=== PATIENT | female | born 1980 | race Caucasian/White ===

== ENCOUNTER 2019-07-26 06:44 | Inpatient (IN) | payer OTHER ==
[2019-07-24 17:57] LABS: Absolute Lymphocytes (CBC) 2.2 K/uL (0.7-4.9); Basophils % 0.7 % (0-1.3); Hematocrit 34.9 % (36.0-45.0); Lymphocytes % 22.5 % (15.3-44.8); MPV 8.5 fL (7.6-11.3); RBC Red Blood Cell Count 4.76 M/uL (3.86-4.86)
[2019-07-24 18:10] LABS: Potassium 3.3 mmol/L (3.5-5.1)
--- OUTSIDE RECORDS SUMMARY | 2019-07-26 06:47 | XMS REPORT ---
:1980 Author Organization [facility] Address [address] [place] [address] Dr. Burr [address] [place] [id number] Care Team Providers Name Role Phone Unavailable Unavailable Unavailable Problems This patient has no known problems. Allergies, Adverse Reactions, Alerts This patient has no known allergies or adverse reactions. Medications This patient has no known medications.
--- OUTSIDE RECORDS SUMMARY | 2019-07-26 06:47 | XMS REPORT | Summary of Care ---
:1980 Author Organization [facility] Address [address] [place] [id number] Care Team Providers Name Role Phone Allan Cuello MD Primary Care Provider Reason for Visit Reason Comments Results Encounter Details Date Type Department Care Team Description 07/25/2019 Telephone [facility] Family Medicine Allan Cuello MD Results - [address] [id number] [place] [address] Allergies Active Allergy Reactions Severity Noted Date Comments Codeine Shortness of Breath High 01/22/2015 "slows breathing" documented as of this encounter (statuses as of 07/25/2019) Medications No known medicationsdocumented as of this encounter (statuses as of 07/25/2019) Active Problems Problem Noted Date Transient amnesia 07/22/2018 Iron deficiency anemia 10/02/2016 Vitamin D deficiency 10/02/2016 Dyslipidemia 10/02/2016 Situational depression 08/13/2016 Obesity 03/07/2016 documented as of this encounter (statuses as of 07/25/2019) Resolved Problems Problem Noted Date Resolved Date History of hypothyroidism 08/13/2016 08/13/2016 History of ileostomy 07/22/2016 08/13/2016 Pain 07/21/2016 08/10/2016 Abdominal wall cellulitis 03/07/2016 08/10/2016 documented as of this encounter (statuses as of 07/25/2019) Immunizations Name Administration Dates Next Due Influenza Virus Vaccine Quad IM 3+ YRS 07/22/2016 TDAP (ADACEL) VACCINE 09/24/2016 documented as of this encounter Social History Tobacco Use Types Packs/Day Years Used Date Never Smoker Smokeless Tobacco: Never Used Alcohol Use Drinks/Week oz/Week Comments Yes socially Sex Assigned at Date Recorded Not on file Job Start Date Occupation Industry Not on file Not on file Not on file Travel History Travel Start Travel End No recent travel history available. documented as of this encounter Last Filed Vital Signs Not on filedocumented in this encounter Plan of Treatment Health Maintenance Due Date Last Done Comments VARICELLA VACCINES (1 of 2 - 1982 2-dose childhood series) PAP SMEAR 02/17/2008 02/16/2005, 01/18/2004 INFLUENZA VACCINE (#1) 2019 07/22/2016 DTaP,Tdap,and Td Vaccines (2 09/24/2026 09/24/2016 - Td) PNEUMOCOCCAL 0-64 YEARS Aged Out No longer eligible based COMBINED SERIES on patient's age to complete this topic documented as of this encounter Results Not on filedocumented in this encounter
[2019-07-26] MEDS ORDERED: Ringers Lactate 1,000 ML IV ONE ×2 (07:05→10:20)
[2019-07-26] MEDS ORDERED: MIDAZOLAM HCL 2 MG/2 ML INJ ONE (07:16)
[2019-07-26] MEDS ORDERED: propofoL 200 MG/20 ML VIAL IV ONE (07:16)
[2019-07-26] MEDS ORDERED: FENTANYL CITR 100 MCG/2 ML ONE (07:16)
[2019-07-26] MEDS ORDERED: LIDOCAINE 2% MPF 5 ML VIAL ONE (07:17)
[2019-07-26] MEDS ORDERED: ROCURONIUM 50 MG/5 ML VIAL IV ONE (07:20)
[2019-07-26] MEDS ORDERED: dexAMETHasone 10 MG/ML VIAL ONE (07:38)
[2019-07-26] MEDS ORDERED: ROPLVACAINE HCL ONE (07:38)
[2019-07-26] MEDS ORDERED: CEFAZOLIN/SWI 1gm 1 GM/10 ML SYR ONE (07:48)
[2019-07-26] MEDS ORDERED: HYDROMORPHONE HCL 1 MG/ML INJ ONE (08:43)
[2019-07-26] MEDS ORDERED: NS 0.9% VIAL 10 ML ONE (08:53)
[2019-07-26] MEDS ORDERED: ONDANSETRON 4 MG/2 ML VIAL ONE (08:58)
[2019-07-26] MEDS ORDERED: dexAMETHasone 4 MG/ML VIAL ONE (08:58)
[2019-07-26] MEDS ORDERED: NEOSTIGMINE 1 MG/ML -5 ML ONE (09:32)
[2019-07-26] MEDS ORDERED: GLYCOPYRROLATE 0.2 MG/ML SYR ONE (09:32)
[2019-07-26] MEDS ORDERED: SODIUM CHLORIDE 0.9% 10ML INJ IV PRN (09:33)
[2019-07-26] MEDS ORDERED: ONDANSETRON 4 MG/2 ML VIAL IV PRN (09:33)
--- NOTE | 2019-07-26 09:33 | P.BOP ---
Preoperative diagnosis: tender incisional ventral hernia, hx of emergent total colectomy with ileos Postoperative diagnosis: same , intrabdominal adhesions Primary procedure: 1. Open repair of incisional ventral hernia with mesh laparoscopic assisted Secondary procedure: 2. Lysis of adhesions Department Mgr: Neda Lynn ([place]) Estimated blood loss: <20c Specimen: henia sac Findings: as above Anesthesia: General Complications: None Transferred to: Recovery Room Condition: Good
[2019-07-26] MEDS: HYDROMORPHONE HCL 2 MG/ML inj ONE ×4 (09:48→10:05)
[2019-07-26] MEDS ORDERED: MEPERIDINE HCL 25 MG/0.5 ML ONE (09:59)
[2019-07-26] MEDS: FENTANYL CITR 100 MCG/2 ML ONE ×4 (10:09→10:25)
[2019-07-26] MEDS: HYDROMORPHONE HCL 1 MG/ML INJ ONE ×2 (10:30→10:40)
[2019-07-26 10:40] VITALS: O2SAT 96
[2019-07-26] MEDS ORDERED: KETOROLAC 30 MG/ML INJ ONE (10:41)
[2019-07-26] MEDS: NA CHLORIDE 0.9% 1,000 ML IV SCH ×2 (11:07→20:00)
[2019-07-26 11:37] VITALS: BMI 33.0
[2019-07-26] MEDS ORDERED: INFLUENZA VACCINE (for 3y+) 0.5 ML DOSE IMVAC ONE (12:00)
[2019-07-26] MEDS: CEFOXITIN/SWI 1gm 1 GM/10 ML SYR IV SCH ×2 (12:04→17:31)
[2019-07-26] MEDS: MEPERIDINE HCL 25 MG/0.5 ML IV PRN (14:40)
--- NOTE | 2019-07-26 21:04 | OP ---
Date of Procedure: 07/26/2019 Surgeon: Hai Richmond MD Bottom Bleacher: BRIELLE Long. Preoperative Diagnoses: Tender incisional ventral hernia, history of emergent total colectomy with i leostomy, and reversal of ileostomy. Postoperative Diagnoses: Tender incisional ventral hernia, history of emergent total colectomy with ileostomy and reversal of ileostomy, and intraabdominal adhesions. Procedures: 1.Open repair of incisional ventral hernia with mesh, laparoscopic access. 2.Laparoscopic lysis of adhesions. Specimen: Hernia sac. Findings: Patient has a ventral incisional hernia where the previous ileostomy was. Patient has ext ensive intraabdominal adhesions. Drains: None. Implant: Ventralex mesh of medium size. Indications: This is the case of a 38-year-old patient, who comes to us with a ventral hernia. She has an emergent total colectomy in the past with exploratory laparotomy and she required ileostomy th en eventually reversal of ileostomy, but she developed a ventral hernia tender on the left lower quad rant where the previous ileostomy was. The benefits, alternatives, and risks of above procedure were fully explained to the patient, which include but are not limited to infection, bleeding, damage to adjacent structures, anesthesia complication, recurrence, FL, even . She also understands this may not relieve her symptoms. She might need more than one surgical intervention. She was explained the possible use of mesh in that area. Pros and cons of mesh placed in were discussed with the ghulam ent, and after answering all her questions, she did agree and consent me for the use of mesh. She un derstands the importance also of no heavy lifting and losing weight. Patient brought to the operatin g room, placed in supine position. Anesthesia was given without complication. Abdomen was prepped a nd draped in a sterile fashion. Since we have previous incisions on her laparotomies, we found a spo t in the epigastric area, where she does not have any incision. We are hoping that the scar tissue t here is less than usual. So we made an incision on that area. Incision was carried down to fascia, which was opened under direct vision. Peritoneum was encountered, opened under direct vision. Vicry l #1 placed inside the fascia. Gypsy trocar was carefully introduced and no bleeding was obtained. With that, we were able to visualize the area of her hernia, clearly visualize. Adhesions are on th e abdomen and lower abdomen, obviously from previous laparotomies and total colectomy, and so we proc eeded to do evaluation of the area. We selected the size of the mesh to cover at least 3-5 cm over t he area of the defects. At that moment, it looked like the fascia edges were apart. It will be bett er just to have a combination and do this open and then laparoscopic assist. So we opened the incisi on in the left lower quadrant. Incision was carried down to fascia, which was opened under direct vi gabe. The hernia sac was encountered and removed. We found the fascial edges, cleaned them. There were some adhesions present in that area that have to be removed, carefully removed with scissors and checking for hemostasis. After that, we proceeded to measure the area, select the mesh placement. We placed a Ventralex medium size mesh inside the abdomen. Pulled it through the hernia sac in order to secure that. We are going to go laparoscopic and secure that in place, which give her better fix ation of the mesh into the underlying tissue and fascia. At that moment, we secured the straps with #1 Prolene, then the [id number] fashion #[address] over the incision. We held incis ion all together while we just put the camera once again, and in order for us to be nice and flat, we have to do some adhesions, so put a 5 mm trocar, do laparoscopic lysis of adhesions to the lower abd omen. This allowed the mesh to be nice and flat against the abdominal wall. Adhesions were checked once again. Hemostasis obtained. No bleeding. At that moment, I proceeded then to tie the stitches on top to secure the defects. We noticed an airproof and waterproof closure. When we did that and we went underneath and proceeded to use a capture to secure the mesh and all the edges to avoid any t issue in between to be trapped in the future to secure a complete fixation. After that, we closed th e subcutaneous tissue with 0 chromic and 3-0 chromic. I removed the trocars under direct visualizati on, and no bleeding. Checked the lysis of adhesion before, no bleeding. Closed the subcutaneous tis laurel with 3-0 chromic and the skin with erika. Sponge count and instrument counts were correct. Al so the epigastric area was closed also with #1 Vicryl. Patient was sent to Recovery in stable condit ion. Sponge count and instrument counts were correct. Since the patient had extensive adhesion yisel john and incisional ventral hernia, we expect this patient to have a pain, probably ileus. We are hardik ng to keep the patient overnight for pain control, diet control. REMIGIO/AMANDA Voice ID: [id number] Report ID: [id number]
[2019-07-27] MEDS: CEFOXITIN/SWI 1gm 1 GM/10 ML SYR IV SCH (00:06)
[2019-07-27] MEDS: MEPERIDINE HCL 25 MG/0.5 ML IV PRN ×3 (00:25→12:36)
[2019-07-27 04:13] LABS: Absolute Lymphocytes (CBC) 1.1 K/uL (0.7-4.9); Basophils % 0.1 % (0-1.3); Hematocrit 32.8 % (36.0-45.0); Lymphocytes % 8.2 % (15.3-44.8); MPV 8.8 fL (7.6-11.3)
[2019-07-27 04:33] LABS: BUN Blood Urea Nitrogen 13 mg/dL (7-18); Bicarbonate 27 mmol/L (21-32); Glucose Level 133 mg/dL (74-106); Potassium 3.9 mmol/L (3.5-5.1); Sodium Level 141 mmol/L (136-145)
[2019-07-27] MEDS: NA CHLORIDE 0.9% 1,000 ML IV SCH (04:36)
[2019-07-27 07:42] LABS: Blood Morphology Comment NOT SEEN (NOT SEEN); Platelet Estimate ADEQ
[2019-07-27] MEDS ORDERED: PANTOPRAZOLE 40 MG INJ IVP SCH (09:00)
[2019-07-27 11:45] VITALS: BP 149/66; TEMP 97.6
--- NOTE | 2019-07-27 13:52 | P.DS ---
Admission Date: 07/26/19 Discharge Date: 07/27/19 Disposition: ROUTINE DISCHARGE Discharge Condition: GOOD Vital Signs/Physical Exam: Temp Pulse Resp BP Pulse Ox 97.6 F 77 18 149/66 H 99 07/27/19 11:44 07/27/19 11:44 07/27/19 12:36 07/27/19 11:44 07/27/19 12:36 General: Alert, Oriented x3 HEENT: PERRLA Neck: Supple Respiratory: Normal air movement Cardiovascular: No edema, Normal pulses Gastrointestinal: Soft and benign Musculoskeletal: No erythema, No tenderness, No warmth Integumentary: No rashes, No breakdown, No erythema, No warmth, No cyanosis Neurological: Normal speech Laboratory Data at Discharge: WBC 13.2 K/uL (4.3-10.9) H D 07/27/19 03:30 Hgb 10.3 g/dL (12.0-15.0) L 07/27/19 03:30 Hct 32.8 % (36.0-45.0) L 07/27/19 03:30 Plt Count 321 K/uL (152-406) 07/27/19 03:30 Sodium 141 mmol/L (136-145) 07/27/19 03:30 Potassium 3.9 mmol/L (3.5-5.1) 07/27/19 03:30 BUN 13 mg/dL (7-18) 07/27/19 03:30 Creatinine 0.72 mg/dL (0.55-1.3) 07/27/19 03:30 Glucose 133 mg/dL (74-106) H 07/27/19 03:30 Home Medications: Multivit,Calc,Mins/Iron/Folic [One Daily Women's Health Tab] 1 each PO DAILY Ondansetron [Zofran*] 4 mg IV Q6HP PRN #10 vial 07/27/19 Sulfamethoxazole/Trimethoprim [Bactrim Ds Tablet] 1 each PO BID #12 tablet 07/27 Tramadol HCl/Acetaminophen [Ultracet Tablet] 1 each PO Q4H PRN #30 tablet New Medications: Ondansetron [Zofran*] 4 mg IV Q6HP PRN #10 vial PRN Reason: Nausea / Vomiting Sulfamethoxazole/Trimethoprim [Bactrim Ds Tablet] 1 each PO BID #12 tablet Tramadol HCl/Acetaminophen [Ultracet Tablet] 1 each PO Q4H PRN #30 tablet PRN Reason: Pain Scale 5-7 (Moderate) Patient Discharge Instructions: Keep surgical area dry for 24 hours then remove outer dressings and shower. Abdominal binder while out of bed. Diet: AHA Activity: No lifting more than 10 lbs Followup: Hai Richmond MD [ACTIVE - CAN ADMIT] - 1 Week
== END 2019-07-27 15:20 | disposition home or self-care (01) | DRG 337 ==
LOC: OR 06:44 → 4TH 09:40
PROVIDERS: ADMIT Surgery; ATTEND Surgery
PROC: 0DNW0ZZ Release Peritoneum, Open Approach (ICD-10-PCS; 2019-07-26)
PROC: 0WUF0JZ Supplement Abdominal Wall with Synthetic Substitute, Open Approach (ICD-10-PCS; principal; 2019-07-26 08:00)
DX: K43.2 Incisional hernia without obstruction or gangrene (principal); Z90.49 Acquired absence of other specified parts of digestive tract; K66.0 Peritoneal adhesions (postprocedural) (postinfection)
CPT/HCPCS: 36415; 80048; 81025; 85025; 88302; C9113; J0690; J1100; J1170; J2175; J2250; J2405; J2704; J2710; J2795; J3010; J7030; J7120

== ENCOUNTER 2022-08-22 15:32 | Emergency (ER) | payer BC, OTHER ==
--- OUTSIDE RECORDS SUMMARY | 2022-08-22 15:38 | XMS REPORT | Continuity of Care Document ---
:1980 Author Organization [facility] t Address [address] [place] [address] [place] [id number] Care Team Providers Name Role Phone Sarahy HESS, Sammie Ndiaye Primary Care Physician [phone] Sarahy HESS, Sammie Ndiaye Attending Clinician + [phone] Eros HESS, Allan Perea Attending Clinician Unique Santillan DO Attending Clinician Neo Faith MD Attending Clinician ALLAN COONEY Attending Clinician Unavailable Doctor Unassigned, [place] Attending Clinician Unavailable Irma Elizabeth Attending Clinician Bella Perez Attending Clinician Payers Payer Name Policy Type Policy Number Effective Date Expiration Date S ource Problems Condition Condition Condition Status Onset Resolution Last Treating Co mments Source Name Details Category Date Date Treatment Clinician Date Alcohol Alcohol Disease Active Methodi abuse abuse 08-19 00:00: Hospita 00 l H/O total H/O total Disease Active Met hodi colectomy colectomy 08-19 00:00: Hospita 00 l Primary Primary Disease Active [facility]i hypertensi hypertensi [address] on on 00:00: Hospita 00 l DAXA DAXA Disease Active Methodi (generaliz (generaliz 3-15 st ed anxiety ed anxiety 00:00: Ho spita disorder) disorder) 00 l Major Major Disease Active Methodi depressive depressive [address] disorder, disorder, 00:00: Hosp susy single single 00 l episode, episode, moderate moderate Acquired Acquired Disease Active Metho di hypothyroi hypothyroi 3-15 st dism dism 00:00: Hospita 00 l Family Family Disease Active Methodi history of history of 3-15 st breast breast 00:00: Hospita cancer cancer 00 l Chronic Chronic Disease Active Univers insomnia insomnia 4-16 ity of 00:00: [place] 00 [facility] Transient Transient Disease Active Uni vers amnesia amnesia 2-15 ity of 00:00: [place] 00 [facility] Vitamin D Vitamin D Disease Active Uni vers deficiency deficiency 4-28 it y of 00:00: [place] [facility] Dyslipidem Dyslipidem Disease Active U nivers ia ia 4-28 ity of 00:00: [place] [facility] Iron Iron Disease Active Univers deficiency deficiency 4-28 it y of anemia anemia 00:00: [place] 00 [facility] Situationa Situationa Disease Active U nivers l l 3-09 ity of depression [place] [facility] Obesity Obesity Disease Active 2015-06 Univers 0- ity of 00:00: [place] [address] Medical Branch OTHER OTHER Diagnosis Active 2015-12-08 Mem oria Active 12-07 22:01:00 l 12/08/2015 00:00: David tracy [address] LWBS LWBS Diagnosis Active 2014-11-01 Mem oria Active 10-31 03:19:00 l 10/31/2014 00:00: David tracy [address] Ileostomy Ileostomy Problem Resolve 2015-12-12 [place] operation operation d 00:20:35 l (procedure (procedure He jayann ) ) Resolved Problem 12/12/2015 [facility] History of Past Illness Condition Condition Condition Status Onset Resolution Last Treating Co mments Source Name Details Category Date Date Treatment Clinician Date Discharge Discharge Problem 2015-12-12 2015-12-12 Yolanda Diagnosis: Diagnosis: 12-08 00:20:35 00:20:35 l Ileostomy Ileostomy 05:00: Herm greg prolapse prolapse 00 12/09/2015 12/12/2015 [facility] Discharge Discharge Problem 2015-12-12 2015-12-12 Yolanda Diagnosis: Diagnosis: 12-08 00:20:35 00:20:35 l Encounter Encounter 05:00: Sharif preston for 00 attention attention to to ileostomy ileostomy 12/09/2015 12/12/2015 [facility] Allergies, Adverse Reactions, Alerts Allergy Allergy Status Severity Reaction(s) Onset Inactive Treating Comm ents Source Name Type Date Date Clinician Codeine Propensi Active Shortness of "slows U nivers ty to Breath 8-18 breathing ity of adverse 00:00: " [place] reaction 00 Medical s Branch CODEINE DRUG Active High SOB Univers INGREDI 8-18 ity of 00:00: [place] 00 Medical Branch Codeine Propensi Active Shortness Of "slows M ethodi ty to Breath 8-[address] adverse 00:00: ""slows Hospita reaction 00 breathing l s to ""slows drug breathing " codeine codeine Active Yolanda Jeter Family History Family Member Diagnosis Comments Start Date Stop Date Source Natural mother Hypertension [facility] Social History Social Habit Start Date Stop Date Quantity Comments Source Exposure to Not sure University of SARS-CoV-2 [place] [facility] (event) Branch History of Cigarette Smoker [facility] tobacco use Tobacco use and 2022-08-19 2022-08-19 Smokeless tobacco [facility] exposure 00:00:00 00:00:00 non-user Alcohol intake 2022-08-19 2022-08-19 Current drinker [facility] [place] 00:00:00 00:00:00 of alcohol (finding) Alcohol Comment 2022-08-19 2022-08-19 heavy for the [facility] 00:00:00 00:00:00 last 2 months, liquor all day and heavier on the weekend Sex Ass[birth year] [facility] 00:00:00 00:00:00 Smoking Status Start Date Stop Date Source Ex-smoker 2022-08-19 00:00:00 2022-08-19 00:00:00 [facility] Social [facility] Medications Ordered Filled Start Stop Current Ordering Indication Dosage Frequency Signature Comments Components Source Medication Medication Date Date Medication? Clinician (SIG) Name Name sertraline 2023- Yes 25mg QD Take 1 Meth nick (Zoloft) 25 3-15 -15 tablet (25 s t MG tablet 00:00: 04:59 mg total) Ho spita 00 :00 by mouth l daily. busPIRone 3-0 4- Yes 5mg [id number] Take 1 Methodi (BUSPAR) 5 3-15 03-15 [id number] tablet (5 st MG tablet 00:00: 04:59 3D mg total) Ho spita 00 :00 by mouth 3 l (three) times a day. iohexol 2020-0 2020- No 100mL 100 mL, Unive rs (OMNIPAQUE 01-17 Intravenou it y of 350 00:15: 00:15 s, ONCE, 1 [place] BULK-100 00 :00 dose, Wed Medica l mL) 01/17/20 at Branch injection 1915, 100 mL Routine NaCl 0.9% 2020-0 2020- No 1000mL at 999 Uni vers (NS) bolus 01-16 mL/hr, ity of infusion 21:45: 03:23 1,000 mL, Seven as 1,000 mL 00 :00 IV Medical Infusion, Branch ONCE, 1 dose, 01/17/20 at 1645, [facility] iohexol 2019-0 2020- No 100mL 100 mL, Unive rs (OMNIPAQUE 01-04 Intravenou it y of 350 22:45: 22:45 s, ONCE, 1 [place] BULK-100 00 :00 dose, Fri Medica l mL) 01/05/20 at Branch injection 1745, 100 mL Routine ondansetron 2019-0 2020- No 4mg 4 mg, Slow Univers (ZOFRAN 01-04 IV Push, ity of (PF)) 21:30: 21:41 Administer [place] injection 4 00 :00 over 15 Medic al mg Minutes, Branch ONCE, 1 dose, 01/05/20 at 1630, STAT morpHINE 2019-0 2020- No 4mg 4 mg, Slow Un john injection 4 01-04 IV Push, ity of mg 21:30: 21:26 ONCE, 1 [place] 00 :00 dose, Fri Medical 01/05/20 at Branch 1630, STAT NaCl 0.9% 2020-0 2020- No 1000mL at 999 Uni vers (NS) bolus 01-04 mL/hr, ity of infusion 21:30: 23:20 1,000 mL, Seven as 1,000 mL 00 :00 IV Medical Infusion, Branch ONCE, 1 dose, Wed01/05/20 at 1630, [facility] ciprofloxac 2020-0 Yes [id number] 500mg Take 1 Univers in HCl 500 7-31 tablet by ity of mg tablet 00:00: mouth 2 [place] 00 (two) Medical times Branch daily. metroNIDAZO 2020-0 Yes [id number] 500mg Take 1 Univers LE 500 mg 7-31 tablet by ity o f tablet 00:00: mouth [place] 00 every 8 Medical (eight) Branch hours. proMETHazin 2020-0 Yes [id number] 25mg Take 1 Univers e 25 mg 7-31 tablet by ity of tablet 00:00: mouth [place] 00 every 4 Medical (four) Branch hours as needed for Nausea and Vomiting (N/V). traMADol 2020-0 Yes [id number] 50mg Take 1 Univers (ULTRAM) 50 7-31 tablet by ity of mg tablet 00:00: mouth [place] 00 every 6 Medical (six) Branch hours as needed for Pain (scale 7-10). Indication s: acute pain ciprofloxac 2020-0 Yes [id number] 500mg Take 1 Univers in HCl 500 7-31 tablet by ity of mg tablet 00:00: mouth 2 [place] 00 (two) Medical times Branch daily. metroNIDAZO 2020-0 Yes [id number] 500mg Take 1 Univers LE 500 mg 7-31 tablet by ity o f tablet 00:00: mouth [place] 00 every 8 Medical (eight) Branch hours. proMETHazin 2020-0 Yes [id number] 25mg Take 1 Univers e 25 mg 7-31 tablet by ity of tablet 00:00: mouth [place] 00 every 4 Medical (four) Branch hours as needed for Nausea and Vomiting (N/V). traMADol 2020-0 Yes [id number] 50mg Take 1 Univers (ULTRAM) 50 7-31 tablet by ity of mg tablet 00:00: mouth [place] 00 every 6 Medical (six) Branch hours as needed for Pain (scale 7-10). Indication s: acute pain ciprofloxac 2020-0 Yes [id number] 500mg Take 1 Univers in HCl 500 7-31 tablet by ity of mg tablet 00:00: mouth 2 [place] 00 (two) Medical times Branch daily. metroNIDAZO 2020-0 Yes [id number] 500mg Take 1 Univers LE 500 mg 7-31 tablet by ity o f tablet 00:00: mouth [place] 00 every 8 Medical (eight) Branch hours. proMETHazin 2020-0 Yes [id number] 25mg Take 1 Univers e 25 mg 7-31 tablet by ity of tablet 00:00: mouth [place] 00 every 4 Medical (four) Branch hours as needed for Nausea and Vomiting (N/V). traMADol 2020-0 Yes [id number] 50mg Take 1 Univers (ULTRAM) 50 7-31 tablet by ity of mg tablet 00:00: mouth [place] 00 every 6 Medical (six) Branch hours as needed for Pain (scale 7-10). Indication s: acute pain ciprofloxac 2020-0 Yes [id number] 500mg Take 1 Univers in HCl 500 7-31 tablet by ity of mg tablet 00:00: mouth 2 [place] 00 (two) Medical times Branch daily. metroNIDAZO 2020-0 Yes [id number] 500mg Take 1 Univers LE 500 mg 7-31 tablet by ity o f tablet 00:00: mouth [place] 00 every 8 Medical (eight) Branch hours. proMETHazin 2020-0 Yes [id number] 25mg Take 1 Univers e 25 mg 7-31 tablet by ity of tablet 00:00: mouth [place] 00 every 4 Medical (four) Branch hours as needed for Nausea and Vomiting (N/V). traMADol 2020-0 Yes [id number] 50mg Take 1 Univers (ULTRAM) 50 7-31 tablet by ity of mg tablet 00:00: mouth [place] 00 every 6 Medical (six) Branch hours as needed for Pain (scale 7-10). Indication s: acute pain ciprofloxac 2020-0 Yes [id number] 500mg Take 1 Univers in HCl 500 7-31 tablet by ity of mg tablet 00:00: mouth 2 [place] 00 (two) Medical times Branch daily. metroNIDAZO 2020-0 Yes [id number] 500mg Take 1 Univers LE 500 mg 7-31 tablet by ity o f tablet 00:00: mouth [place] 00 every 8 Medical (eight) Branch hours. proMETHazin 2020-0 Yes [id number] 25mg Take 1 Univers e 25 mg 7-31 tablet by ity of tablet 00:00: mouth [place] 00 every 4 Medical (four) Branch hours as needed for Nausea and Vomiting (N/V). traMADol 2020-0 Yes [id number] 50mg Take 1 Univers (ULTRAM) 50 7-31 tablet by ity of mg tablet 00:00: mouth [place] 00 every 6 Medical (six) Branch hours as needed for Pain (scale 7-10). Indication s: acute pain ciprofloxac 2020-0 Yes [id number] 500mg Take 1 Univers in HCl 500 7-31 tablet by ity of mg tablet 00:00: mouth 2 (two) Medical times Branch daily. metroNIDAZO 2020-0 Yes [id number] 500mg Take 1 Univers LE 500 mg 7-31 tablet by ity o f tablet 00:00: mouth [place] 00 every 8 Medical (eight) Branch hours. proMETHazin 2020-0 Yes [id number] 25mg Take 1 Univers e 25 mg 7-31 tablet by ity of tablet 00:00: mouth [place] 00 every 4 Medical (four) Branch hours as needed for Nausea and Vomiting (N/V). traMADol 2020-0 Yes [id number] 50mg Take 1 Univers (ULTRAM) 50 7-31 tablet by ity of mg tablet 00:00: mouth [place] 00 every 6 Medical (six) Branch hours as needed for Pain (scale 7-10). Indication s: acute pain ciprofloxac 2020-0 Yes [id number] 500mg Take 1 Univers in HCl 500 7-31 tablet by ity of mg tablet 00:00: mouth (two) Medical times Branch daily. metroNIDAZO 2020-0 Yes [id number] 500mg Take 1 Univers LE 500 mg 7-31 tablet by ity o f tablet 00:00: mouth [place] 00 every 8 Medical (eight) Branch hours. proMETHazin 2020-0 Yes [id number] 25mg Take 1 Univers e 25 mg 7-31 tablet by ity of tablet 00:00: mouth [place] 00 every 4 Medical (four) Branch hours as needed for Nausea and Vomiting (N/V). traMADol 2020-0 Yes [id number] 50mg Take 1 Univers (ULTRAM) 50 7-31 tablet by ity of mg tablet 00:00: mouth [place] 00 every 6 Medical (six) Branch hours as needed for Pain (scale 7-10). Indication s: acute pain traZODone 2020-0 Yes [id number] 25mg Take 0.5-1 Univers 50 mg 4-16 tablets by ity of tablet 00:00: mouth at [place] 00 bedtime. Medical Branch traZODone 2020-0 Yes [id number] 25mg Take 0.5-1 Univers 50 mg 4-16 tablets by ity of tablet 00:00: mouth at [place] bedtime. Medical Branch traZODone 2020-0 Yes [id number] 25mg Take 0.5-1 Univers 50 mg 4-16 tablets by ity of tablet 00:00: mouth at [place] [address] bedtime. Medical Branch traZODone 2020-0 Yes [id number] 25mg Take 0.5-1 Univers 50 mg 4-16 tablets by ity of tablet 00:00: mouth at [place] bedtime. Medical Branch traZODone 2020-0 Yes [id number] 25mg Take 0.5-1 Univers 50 mg 4-16 tablets by ity of tablet 00:00: mouth at [place] [address] bedtime. [facility] Branch traZODone 2020-0 Yes [id number] 25mg Take 0.5-1 Univers 50 mg 4-16 tablets by ity of tablet 00:00: mouth at [place] [address] bedtime. Medical Branch traZODone 2020-0 Yes [id number] 25mg Take 0.5-1 Univers 50 mg 4-16 tablets by ity of tablet 00:00: mouth at [place] [address] bedtime. Medical Branch traZODone 2020-0 Yes [id number] 25mg Take 0.5-1 Univers 50 mg 4-16 tablets by ity of tablet 00:00: mouth at [place] [address] bedtime. [facility] Branch traZODone 2020-0 Yes [id number] 25mg Take 0.5-1 Univers 50 mg 4-16 tablets by ity of tablet 00:00: mouth at [place] [address] bedtime. Medical Branch traZODone 2020-0 Yes [id number] 25mg Take 0.5-1 Univers 50 mg 4-16 tablets by ity of tablet 00:00: mouth at [place] [address] bedtime. Medical Branch traZODone 2020-0 Yes [id number] 25mg Take 0.5-1 Univers 50 mg 4-16 tablets by ity of tablet 00:00: mouth at [place] [address] bedtime. [facility] Branch traZODone 2020-0 Yes [id number] 25mg Take 0.5-1 Univers 50 mg 4-16 tablets by ity of tablet 00:00: mouth at [place] [address] bedtime. Medical Branch traZODone 2020-0 Yes [id number] 25mg Take 0.5-1 Univers 50 mg 4-16 tablets by ity of tablet 00:00: mouth at [place] 00 bedtime. [facility] Iohexol 2015- No 96 mL, Memoria 12-08 Route: l 07:39: IVP, Drug [place] Form: SOLN, Dosing Weight 84.545, kg, ONCALL, STAT, Start date: 12/09/15 2:39:00 CDT, Duration: 1 doses or times, Dose = 2.2ml/kg, Max dose = 100ml -- "To be infused by Radiology Staff ONLY" Iohexol No 96 mL, Memoria 12-08 Route: l 07:39: IVP, Drug [place] 00 Form: SOLN, Dosing Weight 84.545, kg, ONCALL, STAT, Start date: 12/09/15 2:39:00 CDT, Duration: 1 doses or times, Dose = 2.2ml/kg, Max dose = 100ml -- "To be infused by Radiology Staff ONLY" Iohexol No 96 mL, Memoria 12-08 Route: l 07:39: IVP, Drug [place] 00 Form: SOLN, Dosing Weight 84.545, kg, ONCALL, STAT, Start date: 12/09/15 2:39:00 CDT, Duration: 1 doses or times, Dose = 2.2ml/kg, Max dose = 100ml -- "To be infused by Radiology Staff ONLY" Zofran No Notes: [place] 12-08 (Same as: l 03:36: Zofran) [place] 00 MEDICATION WASTE Product Size: 4 mg Product Wasted: 0 mg Zofran No Notes: Memoria 12-08 (Same as: l 03:36: Zofran) [place] 00 MEDICATION WASTE Product Size: 4 mg Product Wasted: 0 mg Zofran No Notes: Memoria 12-08 (Same as: l 03:36: Zofran) [place] 00 MEDICATION WASTE Product Size: 4 mg Product Wasted: 0 mg Isolyte S No 1,000 mL, Mem oria PH-7.4 12-08 Route: IV, l (Bolus) IV 02:54: Dosing Lucy nn 00 Weight 84.545, kg, ONCE, Start date: 12/08/15 21:54:00 CDT, Stop date: 12/08/15 21:54:00 CDT Isolyte S 2016-0 No 1,000 mL, Mem oria PH-7.4 12-08 Route: IV, l (Bolus) IV 02:54: Dosing Lucy nn Weight 84.545, kg, ONCE, Start date: 12/08/15 21:54:00 CDT, Stop date: 12/08/15 21:54:00 CDT Isolyte S 2016-0 No 1,000 mL, Mem oria PH-7.4 12-08 Route: IV, l (Bolus) IV 02:54: Dosing Lucy nn Weight 84.545, kg, ONCE, Start date: 12/08/15 21:54:00 CDT, Stop date: 12/08/15 21:54:00 CDT No known No Univers medications ity [facility] No known No Univers medications ity [facility] No known No Univers medications ity [facility] No known No Univers medications ity of [facility] No known No [facility] Ordered Filled Immunization Date Status Comments [facility] e Immunization Name Name TDAP (ADACEL) 2016-09-24 Completed University of VACCINE 00:00:00 [facility] TDAP (ADACEL) 2016-09-24 Completed University of VACCINE 00:00:00 [place] [facility] TDAP (ADACEL) 2016-09-24 Completed University of VACCINE 00:00:00 [place] [facility] TDAP (ADACEL) 2016-09-24 Completed University of VACCINE 00:00:00 [place] [facility] TDAP (ADACEL) 2016-09-24 Completed University of VACCINE 00:00:00 [place] [facility] TDAP (ADACEL) 2016-09-24 Completed University of VACCINE 00:00:00 [place] [facility] TDAP (ADACEL) 2016-09-24 Completed University of VACCINE 00:00:00 [place] [facility] TDAP (ADACEL) 2016-09-24 Completed University of VACCINE 00:00:00 [place] [facility] TDAP (ADACEL) 2016-09-24 Completed University of VACCINE 00:00:00 [place] [facility] TDAP (ADACEL) 2016-09-24 Completed University of VACCINE 00:00:00 [facility] TDAP (ADACEL) 2016-09-24 Completed University of VACCINE 00:00:00 [facility] TDAP (ADACEL) 2016-09-24 Completed University of VACCINE 00:00:00 [facility] TDAP (ADACEL) 2016-09-24 Completed University of VACCINE 00:00:00 [facility] TDAP (ADACEL) 2016-09-24 Completed University of VACCINE 00:00:00 [facility] TDAP (ADACEL) 2016-09-24 Completed University of VACCINE 00:00:00 [facility] TDAP (ADACEL) 2016-09-24 Completed University of VACCINE 00:00:00 [facility] TDAP (ADACEL) 2016-09-24 Completed University of VACCINE 00:00:00 [facility] TDAP (ADACEL) 2016-09-24 Completed University of VACCINE 00:00:00 [facility] Influenza Virus 2016-07-22 Completed Universit y of Vaccine Quad IM 3+ 00:00:00 [facility] Influenza Virus 2016-07-22 Completed Universit y of Vaccine Quad IM 3+ 00:00:00 [facility] Influenza Virus 2016-07-22 Completed Universit y of Vaccine Quad IM 3+ 00:00:00 [facility] Influenza Virus 2016-07-22 Completed Universit y of Vaccine Quad IM 3+ 00:00:00 [facility] Influenza Virus 2016-07-22 Completed Universit y of Vaccine Quad IM 3+ 00:00:00 [facility] Influenza Virus 2016-07-22 Completed Universit y of Vaccine Quad IM 3+ 00:00:00 [facility] Influenza Virus 2016-07-22 Completed Universit y of Vaccine Quad IM 3+ 00:00:00 [facility] Influenza Virus 2016-07-22 Completed Universit y of Vaccine Quad IM 3+ 00:00:00 [facility] Influenza Virus 2016-07-22 Completed Universit y of Vaccine Quad IM 3+ 00:00:00 [facility] Influenza Virus 2016-07-22 Completed Universit y of Vaccine Quad IM 3+ 00:00:00 [facility] Influenza Virus 2016-07-22 Completed Universit y of Vaccine Quad IM 3+ 00:00:00 [facility] Influenza Virus 2016-07-22 Completed Universit y of Vaccine Quad IM 3+ 00:00:00 [facility] Influenza Virus 2016-07-22 Completed Universit y of Vaccine Quad IM 3+ 00:00:00 [facility] Influenza Virus 2016-07-22 Completed Universit y of Vaccine Quad IM 3+ 00:00:00 [facility] Influenza Virus 2016-07-22 Completed Universit y of Vaccine Quad IM 3+ 00:00:00 [facility] Influenza Virus 2016-07-22 Completed Universit y of Vaccine Quad IM 3+ 00:00:00 [facility] Influenza Virus 2016-07-22 Completed Universit y of Vaccine Quad IM 3+ 00:00:00 [facility] Influenza Virus 2016-07-22 Completed Universit y of Vaccine Quad IM 3+ 00:00:00 [facility] Vital Signs Vital Name Observation Time Observation Value Comments Source Systolic blood 2020-01-18 02:30:00 153 mm[Hg] Univer sity of pressure [facility] Diastolic blood 2020-01-18 02:30:00 79 mm[Hg] Unive rsity of pressure [facility] Heart rate 2020-01-18 02:30:00 73 /min Universi ty of [facility] Body temperature 2020-01-18 02:30:00 37.17 [place] Univ ersity of [facility] Respiratory rate 2020-01-18 02:30:00 16 /min Univ ersity of [facility] Oxygen saturation in 2020-01-18 02:30:00 100 /min University of Arterial blood by [facility] Pulse oximetry Branch Body height 2020-01-17 21:23:00 170.2 cm Universi ty of [facility] Body weight 2020-01-17 21:23:00 90.719 kg Universi ty of [facility] BMI 2020-01-17 21:23:00 31.32 kg/m2 Universi ty of [facility] Diastolic blood 2020-01-05 23:33:52 81 mm[Hg] Unive rsity of pressure [facility] Heart rate 2020-01-05 23:33:52 62 /min Universi ty of [facility] Respiratory rate 2020-01-05 23:33:52 15 /min Univ ersity of [facility] Oxygen saturation in 2020-01-05 23:33:52 100 /min University of Arterial blood by [facility] Pulse oximetry Branch Systolic blood 2020-01-05 23:33:52 156 mm[Hg] Univer sity of pressure [facility] Body temperature 2020-01-05 20:21:00 36.72 [place] [facility] Body height 2020-01-05 20:21:00 170.2 cm Universi ty [facility] Body weight 2020-01-05 20:21:[address] [facility] BMI 2020-01-05 20:21:00 31.95 kg/m2 [facility] Systolic blood 2022-08-19 12:05:00 159 mm[Hg] [facility] pressure Diastolic blood 2022-08-19 12:05:00 86 mm[Hg] [facility] [place] pressure Heart rate 2022-08-19 12:05:00 89 /min [facility] Body height 2022-08-19 12:05:[address] [facility] Body weight 2022-08-19 12:05:[address] [facility] BMI 2022-08-19 12:05:00 32.11 kg/m2 [facility] Oxygen saturation in 2022-08-19 12:05:00 98 /min [facility] Arterial blood by Pulse oximetry Systolic (mm Hg) 2015-12-09 11:15:00 Larry rial [place] Diastolic (mm Hg) 2015-12-09 11:15:00 Mem orial [place] Heart Rate 2015-12-09 11:15:00 [facility] Respitory Rate 2015-12-09 11:15:00 Memori al [place] Heart Rate 2015-12-09 08:00:00 [facility] [place] Respitory Rate 2015-12-09 08:00:00 Memori al [place] Systolic (mm Hg) 2015-12-09 08:00:00 Larry rial [place] Diastolic (mm Hg) 2015-12-09 08:00:00 Mem orial [place] Systolic (mm Hg) 2015-12-09 05:54:00 Larry rial [place] Diastolic (mm Hg) 2015-12-09 05:54:00 Mem orial [place] Respitory Rate 2015-12-09 05:54:00 Memori al [place] Heart Rate 2015-12-09 05:54:00 [facility] [place] Temperature Oral (F) 2015-12-09 02:42:00 98 F Koffi Olguinann Weight 2015-12-09 01:00:00 [facility] [place] Temperature Oral (F) 2015-12-09 01:00:00 98 F Koffi Jeter Height 2015-12-09 01:00:00 170.18 cm Koffi Jeter BMI Calculated 2015-12-09 01:00:00 Shar berrios [place] Respitory Rate 2014-10-31 23:29:00 Shar al [place] Heart Rate 2014-10-31 23:29:00 [facility] [place] Systolic (mm Hg) 2014-10-31 23:29:00 Larry oro [place] Diastolic (mm Hg) 2014-10-31 23:29:00 Mem susannahal [place] Temperature Oral (F) 2014-10-31 23:29:00 99.6 F Koffi Olguinann Procedures Procedure Date / Time Performing Clinician Source Performed MAMMO BREAST SCREEN 2022-08-21 20:12:00 [facility] TOMOS[facility] BILATERAL [place] CBC WITH PLATELET AND 2022-08-20 13:26:00 [facility] DIFFERENTIAL [place] COMPREHENSIVE METABOLIC 2022-08-20 13:26:00 [facility] PANEL [place] LIPID PANEL 2022-08-20 13:26:00 [facility] TSH WITH REFLEX TO FREE 2022-08-20 13:26:00 [facility] T4 [place] VITAMIN D 25 HYDROXY 2022-08-20 13:26:00 [facility] LEVEL [place] GGT 2022-08-20 13:26:00 [facility] HEMOGLOBIN A1C 2022-08-20 13:26:00 [facility] URINALYSIS 2020-01-18 01:43:00 [facility] Sant[facility]an [facility] Medical [address] CT ABDOMEN PELVIS W 2020-01-18 00:06:37 Unique Santillan [facility] Branch XR CHEST 1 VW 2020-01-17 21:58:01 Unique Santillan [facility] HB ABO GROUPING 2020-01-17 21:50:00 Tyrell [facility] LIPASE 2020-01-17 21:46:00 Tyrell [facility] HEPATIC FUNCTION PANEL 2020-01-17 21:46:00 Tyrell Iak[facility] ([id number]) (ALB,T.PRO,BILI Medical Branch T,BU/BC,ALT,AST,ALK PHOS) BASIC METABOLIC PANEL 2020-01-17 21:46:00 Tyrell [facility] (NA, K, CL, CO2, Medical Branch GLUCOSE, BUN, CREATININE, CA) CBC WITH DIFF 2020-01-17 21:46:00 [facility] / INR 2020-01-17 21:46:00 Tyrell [facility] ACTIVATED PARTIAL 2020-01-17 21:46:00 Tyrell [facility] THRMPLAS ELLIOTT [facility] COVID-19 (ID NOW RAPID 2020-01-17 21:46:00 Tyrell [facility] TESTING) Medical Branch EKG-12 LEAD 2020-01-17 21:31:33 Tyrell [facility] CT ABDOMEN PELVIS W 2020-01-05 22:40:04 Marcell [facility] CONTRAST [facility] Branch URINALYSIS 2020-01-05 21:28:00 Marcell [facility] LIPASE 2020-01-05 21:23:00 Marcell [facility] TEST, SERUM 2020-01-05 21:23:00 Marcell [facility] HEPATIC FUNCTION PANEL 2020-01-05 21:23:00 Marcell [facility] ([id number]) (ALB,T.PRO,BILI Medical Branch T,BU/BC,ALT,AST,ALK PHOS) BASIC METABOLIC PANEL 2020-01-05 21:23:00 Marcell [facility] (NA, K, CL, CO2, Medical Branch GLUCOSE, BUN, CREATININE, CA) CBC WITH DIFF 2020-01-05 21:23:00 Marcell [facility] PROTHROMBIN TIME / INR 2020-01-05 21:23:00 Neo Faith Redd [facility] EXTERNAL PROVIDER 2019-08-07 06:01:00 Doctor Unassigned, No [facility] [place] RECORDS Name Medical [facility] EXTERNAL PROVIDER 2019-07-28 06:01:00 [facility], [facility] Plan of Care Planned Activity Planned Date Details Comments Source Future Scheduled 2022-08-22 COVID-19 VACCINE [facility] Test 02:16:38 (#1) [code = COVID-19 VACCINE (#1)] Future Scheduled 2022-08-22 Hepatitis C [facility] Test 02:16:38 screening (procedure) [code = 454191369] Future Scheduled 2022-08-22 [facility] for [facility] Test 02:16:38 malignant neoplasm of cervix (procedure) [code = 867039052] Future Scheduled 2022-08-22 INFLUENZA VACCINE [facility] Test 02:16:38 [code = INFLUENZA VACCINE] Future Scheduled 2022-08-22 [facility] Test 02:16:38 SCREENING [code = BREAST CANCER SCREENING] Encounters Start End Encounter Admission Attending Care Care Encounter Source Date/Time Date/Time Type Type Clinicians Facility Department ID 2021-04-04 Emergency [facility] [id number] Univers 12:10:45 ity of [facility] 2021-04-04 Emergency [facility] [id number] Univers 10:07:54 ity of [facility] 2022-08-21 2022-08-21 [facility] Sarahy, 1.2.840.1 [id number] Methodi 14:55:35 23:59:00 Encounter Sammie 87027.1.1 [address] [facility] 3.430.2.7 Hosp susy .3.084888 l .8 2022-08-21 2022-08-21 Outpatient SARAHY [facility] [id number] [address] [place] 00:00:00 00:00:00 SAM[address] 2022-08-21 2022-08-21 Travel 1.2.840.1 1.2.801.929 [id number] Methodi 00:00:00 00:00:[address] 3.430.2.7 0.2.7.3.698 Ho spita .3.614190 084.8 l .8 2022-08-19 2022-08-19 Office Sarahy, 1.2.840.1 [id number] Methodi 07:00:00 07:48:34 Visit Sammie 04854.1.[address] [place] 3.430.2.7 Hosp susy .3.634499 l .8 2022-08-19 2022-08-19 Outpatient WEATHERS, [facility] [id number] [address] [place] 00:00:00 00:00:[address] 2022-08-19 2022-08-19 Travel 1.2.840.1 1.2.985.470 [id number] Methodi 00:00:00 00:00:[address] 3.430.2.7 0.2.7.3.698 Ho spita .3.380063 084.8 l .8 2020-12-25 2020-12-25 Commerce [place], [place]AC 1.2.840.114 [id number] Univers 00:00:00 00:00:00 Wondiful A Health 350.1.13.10 ity of [place] 4.2.7.2.686 Seven as Professio [phone] [address] Office Building One 2020-03-23 2020-03-23 [facility] Eros WIAC 1.2.840.114 [id number] Univers 00:00:00 00:00:00 Wondiful A [place] 350.1.13.10 ity [place] [phone] [place] dicdc nal 044 Branch [facility] 2020-02-18 2020-02-18 Refstevie Cooney [facility] 1.2.840.114 [id number] Univers 00:00:00 00:00:00 Wondiful A [place] 350.1.13.10 ity [place] [phone] [place] [address] Branch [facility] 2020-01-18 2020-01-18 [facility]ill [facility] 1.2.840.114 [id number] Univers 00:00:00 00:00:00 Wondiful A [place] 350.1.13.10 ity [place] [phone] [address] 2020-01-17 2020-01-17 Emergency Unique Santillan [facility] 1.2.840.1 [id number] Univers 16:24:00 22:23:00 Faith, [facility] 350.1.13.10 [place] [phone] [address] ([facility]) 2020-01-17 2020-01-17 Telephone [facility] 1.2.840.114 [id number] Univers 00:00:00 00:00:00 Wondiful A Health 350.1.13.10 ity of [place] 4.2.7.2.686 [place] as Professio [phone] [address] Office Building One 2020-01-05 2020-01-05 [facility] 1.2.511.800 [id number] Univers 15:29:03 19:44:00 [facility] 350.1.13.10 [place] [phone] [address] ([facility]) 2020-01-05 2020-01-05 Telephone [facility] 1.2.840.114 [id number] Univers 00:00:00 00:00:00 Wondiful A Health 350.1.13.10 ity of [place] 4.2.7.2.686 [place] Professio [phone] [address] Office Building [facility] 2019-12-18 2019-12-18 [facility] 1.2.840.114 [id number] Univers 00:00:00 00:00:00 Wondiful A [place] 350.1.13.10 it[place] [phone] [address] 2019-11-16 2019-11-16 [facility] 1.2.840.114 [id number] Univers 00:00:00 00:00:00 Wondiful A [place] 350.1.13.10 ity [place] [phone] [address] 2019-10-13 2019-10-13 Refill [facility] 1.2.840.114 [id number] Univers 00:00:00 00:00:00 Wondiful A [place] 350.1.13.10 it[place] [phone] [address] 2019-09-21 2019-09-21 Telemedici [facility] 1.2.840.114 [id number] Univers 07:23:58 14:15:57 ne Visit Wondiful A [place] 350.1.13.10 ity [place] [phone] [address] 2019-09-21 2019-09-21 Outpatient R EROS [facility] [id number] Univers 11:00:00 11:00:00 WONDIFUL ity o f [facility] 2019-08-07 2019-08-07 Orders Doctor QUICK 1.2.840.114 [id number] Univers 00:00:00 00:00:00 Only Unassigned, KAUSHIK 350.1.13.10 ity of [place] [facility] 4.2.7.2.686 Seven as [phone] [address] 2019-07-28 2019-07-28 Telephone [facility] 1.2.840.114 [id number] Univers 00:00:00 00:00:00 Wondiful A Health 350.1.13.10 ity of [place] 4.2.7.2.686 [place] Professio [phone] [address] Building One 2019-07-28 2019-07-28 Orders Doctor ABDELRAHMAN 1.2.840.114 [id number] Univers 00:00:00 00:00:00 Only Unassigned, KAUSHIK 350.1.13.10 [facility] 4.2.7.2.686 Seven as [phone] [address] 2019-07-26 2019-07-26 Telephone Eros [facility] 1.2.840.114 [id number] Univers 00:00:00 00:00:00 Wondiful A Health 350.1.13.10 ity of [place] 4.2.7.2.686 [place] as Professio [phone] [facility] 044 [facility] 2019-07-25 2019-07-25 Telephone [facility] 1.2.840.114 [id number] Univers 00:00:00 00:00:00 Wondiful A Health 350.1.13.10 ity of [place] 4.2.7.2.686 [place] as Professio [phone] [address] 2016-08-03 2016-08-03 Outpatient MHIE MHIE [id number] [place] 11:15:00 11:15:00 03 [place] 2016-08-03 2016-08-03 Outpatient MHIE MHIE [id number] Memoria 11:15:00 11:15:00 03 [facility] 2016-07-02 2016-07-02 Outpatient MHIE MHIE [id number] Memoria 14:30:00 14:30:00 02 [place] 2016-07-02 2016-07-02 Outpatient MHIE MHIE [id number] Memoria 14:30:00 14:30:00 02 [facility] 2016-06-09 2016-06-09 Outpatient MHIE MHIE [id number] Memoria 09:15:00 09:15:00 01 [place] 2016-06-09 2016-06-09 Outpatient MHIE MHIE [id number] Memoria 09:15:00 09:15:00 01 [facility] 2015-12-09 2015-12-09 [facility] [id number] Memoria 00:53:00 11:43:00 Emergency r [place] 01 [facility] 2015-12-09 2015-12-09 [facility] [id number] Memoria 00:53:00 11:43:00 Emergency r [place] 01 [facility] 2015-12-08 2015-12-09 Outpatient Glenn [facility] [id number] 19:53:00 06:43:00 Irma Gillespie 2014-10-31 2014-11-01 [facility] [id number] Memoria 23:14:00 03:11:00 Emergency r [place] 00 [facility] 2014-10-31 2014-11-01 [facility] [id number] Memoria 23:14:00 03:11:00 Emergency r [place] 00 [facility] 2014-10-31 2014-10-31 Outpatient Chris 2.16.840. 2.16.840.1. 3 [id number] 18:14:00 22:11:00 Bella Vazquez [id number]. 800803.3.61 00 3.615.0.1 5.0.101 01 Results Test Description Test Time Test Comments Results Result Comments Source Comprehensive metabolic panel 2022-08-21 05:40:00 Test Item Value Reference Range Interpretation Comme nts Glucose (test code = 94 mg/dL 65-99 Fastin g reference 2345-7) interval BUN (test code = 3094-0) 13 mg/dL 7-25 Creatinine (test code = 0.76 mg/dL 0.50-0.99 2160-0) eGFR (test code = 102 See_Comment [place] [address]-7) the CKD-EPI 202 1 equation. To ca lculate the new eGFR fr om a previous Creati nine or Cystatin Cresul t, go to https://www.kid raymond.org/ professionals/k doqi/gfr %5Fcalculator [Automated mess age] The system which ge nerated this result tra nsmitted reference range : > OR = 60 mL/min/1.73m 2. The reference range was not used to interpr et this result as normal/abnormal . BUN/creatinine ratio NOT APPLICABLE See_Comment [Aut omated message] (test code = 3097-3) The sys tem which generated this result transmitted ref erence range: 6 - 22 ( calc). The reference r shahana was not used to int erpret this result as normal/abnormal . Sodium (test code = 140 mmol/L 052-276 2686-2) Potassium (test code = 4.1 mmol/L 3.5-5.3 2823-3) Chloride (test code = 103 mmol/L 98-110 2075-0) CO2 (test code = 2027-9) 28 mmol/L 20-32 Calcium (test code = 9.2 mg/dL 8.6-10.2 10790-9) Protein (test code = 6.9 g/dL 6.1-8.1 2885-2) Albumin, S (test code = 4.0 g/dL 3.6-5.1 1751-7) Globulin, total (test 2.9 See_Comment [Auto mated message] code = 33798-9) The system w hich generated this result transmitted ref erence range: 1.9 - 3. 7 g/dL (calc). The ref erence range was not u sed to interpret this result as normal/abnor mal. Albumin/globulin ratio 1.4 See_Comment [Aut omated message] (test code = 1759-0) The sys tem which generated this result transmitted ref erence range: 1.0 - 2. 5 (calc). The ref erence range was not u sed to interpret this result as normal/abnor mal. Total bilirubin (test 0.5 mg/dL 0.2-1.2 code = 1974-2) Alkaline phosphatase 50 U/L 31-125 (test code = 6768-6) AST (test code = 1920-8) 16 U/L 10-30 ALT (test code = 1742-6) 13 U/L 6-29 ROBSON (test code = ROBSON) FASTING:YES FASTING: YES RAC (test code = RAC) Performing Organization Information: Site ID: RGA Name: [facility] Address: [address] [place] [id number] Director: Emeka Kay [facility] [id number] 05:40:00 Test Item Value Reference Range Interpretation Comments Cholesterol, total 205 mg/dL <=200 H (test code = 2092-3) HDL cholesterol 54 mg/dL See_Comment [Automated (test code = 2084-) message ] The system which generated this result transmitted reference range : > OR = 50. The reference range was not used to interpret this result as normal/abnormal . Triglycerides (test 136 mg/dL <=150 code = 2571-8) LDL cholesterol 126 mg/dL (calc) H Reference ra nge: calculated (test <100 Desira ble code = 55449-4) range <100 m g/dL for primary prevention; <70 mg/dL for patients with C HD or diabetic patients with > or = 2 CHD risk factors. LDL-C is now calculated using the Anthony calculation, which is a validated novel method providin g better accuracy than the Friedewald equation in the estimation of LDL-C. Akbar S S et al. YOHANA. 2013;310(19): 2789-1718 (http://educati on .Revision3 .com/faq/BVK590 ) Cholesterol/HDL 3.8 See_Comment [Automated ratio (test code = message] The 9830-1) system which generated this result transmitted reference range : <5.0 (calc). Th e reference range was not used to interpret this result as normal/abnormal . Non-HDL cholesterol 151 See_Comment H For ghulam ents with (test code = diabetes plus 1 11822-3) major ASCVD ris k factor, treatin g to a non-HDL-C goal of <100 mg/dL (LDL-C of <70 mg/dL) is considered a therapeutic option. [Automated message] The system which generated this result transmitted reference range : <130 mg/dL (calc). The reference range was not used to interpret this result as normal/abnormal . ROBSON (test code = FASTING:YES ROBSON) FASTING: YES RAC (test code = Performing RAC) Organization Information: Site ID: RGA Name: [facility] Address: [address] [place] [phone] Director: Emeka Kay Lab Interpretation Abnormal (test code = 64925-7) [id number] 05:40:00 Test Item Value Reference Range Interpretation Comments GGT (test code = 10 U/L 3-55 2324-2) ROBSON (test code = FASTING:YES FASTING: YES ROBSON) RAC (test code = Performing Organization RAC) Information: Site ID: JOSEA Name: [facility] Address: [address] [place] [phone] Director: Emeka Kay [facility] [id number] 05:40:00 Test Item Value Reference Interpretation Comments Range Hemoglobin A1C 5.7 See_Comment H For someone w roz (test code = known diabetes, a 4548-4) hemoglobin A1c value between 5.7% an d 6.4% is consist ent withprediabetes and should be confi rmed with a follow-u p test. For someo ne with known diab etes, a value <7%indicates that their diabetes is well controlled . Z5ecgxgrbg shou ld be individualized based on duration ofdiabetes, age , comorbid condit ions, and otherconsiderat ions. This assay resu lt is consistent with an increased risko f diabetes. Curre ntly, no consensus ex ists regarding use ofhemoglobin A1 c for diagnosis of diabetes for children. [Auto mated message] The sy stem which generated this result transmit octavio reference range : <5.7 % of total Hgb. The reference r shahana was not used to interpret this result as normal/abnormal . ROBSON (test code = FASTING:YES ROBSON) FASTING: YES RAC (test code = Performing RAC) Organization Information: Site ID: JOSEA Name: [facility] Lab Address: [address] [place] [phone] Director: Emeka Kay Lab Interpretation Abnormal (test code = 74108-1) [facility] with platelet and [id number] 05:40:00 Test Item Value Reference Range Interpretation Comments WBC (test code = 7.9 See_Comment [Automated 4647-2) message] The system which generated this result transmitted reference range : 3.8 - 10.8 Thousand/uL. Th e reference range was not used to interpret this result as normal/abnormal . RBC (test code = 4.69 See_Comment [Automated 167-8) message] The system which generated this result transmitted reference range : 3.80 - 5.10 Million/uL. The reference range was not used to interpret this result as normal/abnormal . HGB (test code = 10.1 g/dL 11.7-15.5 L 718-7) HCT (test code = 33.2 % 35.0-45.0 L 4544-3) MCV (test code = 70.8 fL 80.0-100.0 L 787-2) MCH (test code = 21.5 pg 27.0-33.0 L 785-6) MCHC (test code = 30.4 g/dL 32.0-36.0 L 786-4) RDW (test code = 15.9 % 11.0-15.0 H 788-0) Platelet count (test 421 See_Comment H [Autom ated code = 777-3) message] The system which generated this result transmitted reference range : 140 - 400 Thousand/uL. Th e reference range was not used to interpret this result as normal/abnormal . MPV (test code = 10.7 fL 7.5-12.5 776-5) Neutrophils, 5530 See_Comment [Automated absolute (test code message] The = 751-8) system which generated this result transmitted reference range : 1,500 - 7,800 cells/uL. The reference range was not used to interpret this result as normal/abnormal . Lymphocytes, 1635 See_Comment [Automated absolute (test code message] The = 731-0) system which generated this result transmitted reference range : 850 - 3,900 cells/uL. The reference range was not used to interpret this result as normal/abnormal . Monocytes, absolute 521 See_Comment [Automa octavio (test code = 742-7) message] The system which generated this result transmitted reference range : 200 - 950 cells/uL. The reference range was not used to interpret this result as normal/abnormal . Eosinophils, 174 See_Comment [Automated absolute (test code message] The = 711-2) system which generated this result transmitted reference range : 15 - 500 cells/uL. The reference range was not used to interpret this result as normal/abnormal . Basophils, absolute 40 See_Comment [Automa octavio (test code = 704-7) message] The system which generated this result transmitted reference range : 0 - 200 cells/u L. The reference range was not used to interpr et this result as normal/abnormal . Neutrophils (test 70 % code = 770-8) Lymphocytes (test 20.7 % code = 736-9) Monocytes (test code 6.6 % = 5905-5) Eosinophils (test 2.2 % code = 713-8) Basophils + RC (test 0.5 % code = 706-2) ROBSON (test code = FASTING:YES ROBSON) FASTING: YES RAC (test code = Performing RAC) Organization Information: Site ID: JOSEA Name: [facility] Address: [address] [place] [phone] Director: Emeka Kay Lab Interpretation Abnormal (test code = 39093-2) [facility]vine[facility]it[facility] D 25 hydroxy [id number] 05:40:00 Test Item Value Reference Range Interpretation Comments Vitamin D, 25-hydroxy 19 ng/mL 30-100 L Vitami n D Status (test code = 1988-08) 25-OH V itamin D: Deficiency: <20 ng/mLInsufficie n cy: 20 - 29 ng/mLOptimal: > or = 30 ng/mL For 25-OH Vitamin D testing on patients on D2-supplementat i on and patients for whom quantitation of D2 and D3 fractions is required, the QuestAssureD(TM ) 25-OH VIT D, (D2,D3), LC/MS/MS is recommended: order code 9288 8 (patients >2yrs).See Note 1 Note 1 For additional information, please refer to http://educatio n .HDB New[employer] Wildfire [place]/faq/FAQ19 9 (This link is being provided for informational/e d ucational purposes only.) ROBSON (test code = ROBSON) FASTING:YES FASTING: YES RAC (test code = RAC) Performing Organization Information: Site ID: A Name: [facility] Address: [address] [place] [phone] Director: Emeka Kay Lab Interpretation Abnormal (test code = 56483-6) [facility]TS with reflex to free [id number] 05:40:00 Test Item Value Reference Range Interpretation Comments TSH reflex to 2.72 mIU/L Reference Ran ge > FT4 (test code or = 20 Years = 3016-3) 0.40-4.50 Range s First trimester 0.26-2.66 Secon d trimester 0.55-2.73 Third trimester 0.43-2.91 ROBSON (test code FASTING:YES FASTING: = ROBSON) YES RAC (test code Performing = RAC) Organization Information: Site ID: RGA Name: [facility] Address: [address] [place] [phone] Director: Emeka Kay [facility] Gra[id number] 02:03:00 Test Item Value Reference Range Interpretation Comments APPEARANCE (test code = Clear Clear 2925034090) COLOR (test code = Straw Yellow A 8129589956) PH (test code = 4.8-8.0 0162919186) SP GRAVITY (test code = 1.003-1.030 H 6098905221) GLU U QUAL (test code = Normal Normal 6597356243) BLOOD (test code = Negative Negative 7567397528) KETONES (test code = 20 mg/dL Negative A 3530502070) PROTEIN (test code = Negative Negative 2887-8) UROBILIN (test code = Normal Normal 3263128683) BILIRUBIN (test code = Negative Negative 5329002666) NITRITE (test code = Negative Negative 9017515681) LEUK LUIZ (test code = Negative Negative 0002791340) RBC/HPF (test code = See_Comment H [Autom ated message] 1328931476) The system [employer] generated this result transmitted ref erence range: 0 - 3 HP F. The reference range was not used to int erpret this result as normal/abnormal . WBC/HPF (test code = See_Comment [Autom ated message] 0547597175) The system [employer] generated this result transmitted ref erence range: 0 - 5 HP F. The reference range was not used to int erpret this result as normal/abnormal . BACTERIA (test code = Few Negative A 5841204762) SQ EPITH (test code = See_Comment [Auto mated message] 3816260749) The system [employer] generated this result transmitted ref erence range: <=2 HPF. The reference range was not used to int erpret this result as normal/abnormal . Lab Interpretation (test Abnormal code = 32808-3) [facility] [id number] 01:02:55 Mild thickening of the mid to distal residual bowel/ileum with adjacentreactive adenopathy. This appearance is similar to the exam performed on01/05/2020. No other acute finding is identified otherwise. Urinary bladder appearance suspicious for cystitis. EXAM: CT ABDOMEN AND PELVIS WITH CONTRAST HISTORY: Abdominal pain. COMPARISON: 01/05/2020, 09/27/2018. TECHNIQUE AND FINDINGS: Contiguous axial imaging from the level of the lungbases through the pubic symphysis was performed after the uncomplicatedadministration of intravenous contrast. Coronal and sagittalreconstructions were obtained. ?Auto mA and/or iterative reconstructionwere used to reduce radiation dose. FINDINGS: LOWER THORAX: The lungs bases are clear. LIVER: No focal hepatic lesions. ?Normal contour. GALLBLADDER AND BILIARY TREE: No biliary ductal dilation. ?No gallbladderwall thickening. SPLEEN: Normal. PANCREAS: Normal. ADRENAL GLANDS: Normal. KIDNEYS: Normal enhancement and no hydronephrosis, GI TRACT: Stomach is minimally distendedand not well evaluated. No dilatedloops of small bowel is identified. Evidence of prior bowel resections andanastomosis noted. The large bowel is surgically absent. In the mid todistal residual ileum, there is a single short segment/loop of mildcircumferential mural thickening (image 3:66) near one site of anastomosis.Adjacent reactive appearing mesenteric lymph nodes are identified whichmeasure up to 1.0 cm. PERITONEUM AND RETROPERITONEUM: No free air or fluid. LYMPH NODES: Aside from mesenteric lymph nodes described above, noadenopathy. PELVIS/BLADDER: The bladder is circumferentially thickened with mildmucosal hyperenhancement. A 1.0 cm leiomyoma projects anteriorly from theleft para midline uterine fundus. Ovaries appear normal. Corpus luteumpresent on the right. VESSELS: Normal. BONES AND SOFT TISSUES: No suspicious lytic or sclerotic bony lesions. [facility], Radiant Results Inft User - 01/17/2020 8:03 PM CDTEXAM: CT ABDOMEN AND PELVIS WITH CONTRASTHISTORY: Abdominal pain.COMPARISON: 01/05/2020,09/27/2018.TECHNIQUE AND FINDINGS: Contiguous axial imaging from the level of the lungbases through the pubic symphysis was performed after the uncomplicatedadministration of intravenous contrast. Coronal and sagittalreconstructions were obtained. Auto mA and/or iterative reconstructionwere used to reduce radiation dose.FINDINGS:LOWER THORAX: The lungs bases are clear. LIVER: No focal hepatic lesions.Normal contour.GALLBLADDER AND BILIARY TREE: No biliary ductal dilation. No gallbladderwall thickening.SPLEEN: Normal.PANCREAS: Normal.ADRENAL GLANDS: Normal.KIDNEYS: Normal enhancement and no hydronephrosis,GI TRACT: Stomach is minimally distended and not well evaluated. No dilatedloops of small bowel is identified. Evidence of prior bowel resections andanastomosis noted. The large bowel is surgically absent. In the mid todistal residual ileum, there is a single short segment/loop of mildcircumferential mural thickening (image 3:66) near one site of anastomosis.Adjacent reactive appearing mesenteric lymph nodes are identified whichmeasure up to 1.0 cm.PERITONEUM AND RETROPERITONEUM: No free air or fluid.LYMPH NODES: Aside from mesenteric lymph nodes described above, noadenopathy.PELVIS/BLADDER: The bladder is circumferentially thickened with mildmucosal hyperenhancement. A 1.0 cm leiomyoma projects anteriorly from theleft para midline uterine fundus. Ovaries appear normal. Corpus luteumpresent on the right.VESSELS: Normal.BONES AND SOFT TISSUES: No suspicious lytic or sclerotic bony lesions.IMPRESSIONMild thickening of the mid to distal residual bowel/ileum with adjacentreactive adenopathy. This appearance is similar to the exam performed on01/05/2020. No other acute finding is identified oth erwise.Urinary bladder appearance suspicious for cystitis.[facility] CenterType and Screen - Type and Screen expires at midnight on the 3rd day after it was drawn. A current Type and Screen is required when RBCs are requested. For all other blood products, a Type and Screen performed during the current hospitalization i...2020-01-17 23:55:57 Test Item Value Reference Range Interpretation Comments ABO & RH (test code A Positive Performe d at [facility] = 20) Laboratory [facility] [place], [place] [address]Toll Free: [phone] 266CLIA No. [id number] IAT (test code = Negative Performed a t [facility] 1185) Laboratory [facility] [address] [place], [place] [address] 4Toll Free: [phone] 266CLIA No. [id number] [facility] CenterBasi Metabolic Panel (NA, K, CL, CO2, GLUCOSE, BUN, CREATININE, CA)2020-01-17 23:43:00 Test Item Value Reference Range Interpretation Comments NA (test code = 138 mmol/L 135-145 3552078849) K (test code = 3.6 mmol/L 3.5-5 5495397847) CL (test code = 102 mmol/L 98-108 3445486932) CO2 TOTAL (test code = 28 mmol/L 23-31 5818174642) AGAP (test code = 2-16 2118048969) BUN (test code = 10 mg/dL 7-23 5003691526) GLUCOSE (test code = 89 mg/dL 70-110 5065942497) CREATININE (test code 0.77 mg/dL 0.5-1.04 = 3606081610) CALCIUM (test code = 9.4 mg/dL 8.6-10.6 6700481495) eGFR Calculation mL/min/1.73m2 (Non-) (test code = 6279959972) eGFR Calculation mL/min/1.73m2 () (test code = 6598286205) ROBSON (test code = ROBSON) Association of Glomerular Filtration Rate (GFR) and Staging of Kidney Disease* + -+ + ---+| GFR (mL/min/1.73 m2) ?| With Kidney Damage ?| ?Without Kidney Damage+ -------+ ------+ ---------+| ?>90 ?| ?Stage one ?| ? Normal ?+ --+ -+ ----+| ?60-89 ?| ?Stage two ?| ? Decreased GFR ? + -+ + ---+| ?30-59 ?| ?Stage three ?| ? Stage three ? + -+ + ---+| ?15-29 ?| ?Stage four ? | ? Stage four ?+ --+ -+ ----+| ?<15 (or dialysis) ? ?| ?Stage five ? | ? Stage five ?+ --+ -+ ----+ *Each stage assumes the associated GFR level has been in effect for at least three months. ?Stages 1 to 5, with or without kidney disease, indicate chronic kidney disease. Notes: Determination of stages one and two (with eGFR >59mL/min/1.73 m2) requires estimation of kidney damage for at least three months as defined by structural or functional abnormalities of the kidney, manifested by either:Pathological abnormalities or Markers of kidney damage (including abnormalities in the composition of the blood or urine or abnormalities in imaging tests). [facility] CenterHepatic Function Panel (ALB, T.PRO, BILI T, BU/BC, ALT, AST, ALK PHOS)2020-01-17 23:43:00 Test Item Value Reference Range Interpretation Comments TOTAL BILI (test code = 8682854344) 0.5 mg/dL 0.1-1.1 BILI UNCON (test code = 8638792281) 0.4 mg/dL 0.1-1.1 BILI CONJ (test code = 1315765095) 0.0 mg/dL 0-0.3 T PROTEIN (test code = 9212728828) 7.4 g/dL 6.3-8.2 ALBUMIN (test code = 2445364606) 4.4 g/dL 3.5-5 ALK PHOS (test code = 4776305255) 63 U/L 34-122 ALTv (test code = 1742-6) 23 U/L 5-35 AST(SGOT) (test code = 1257402418) 29 U/L 13-40 Lab Interpretation (test code = Normal 24653-1) [facility] CenterLipase [id number] 23:43:00 Test Item Value Reference Range Interpretation Comments LIPASE (test code = 1549933779) 104 U/L 0-220 Lab Interpretation (test code = Normal 84450-7) [facility] CenterCOVID-19 (ID NOW RAPID TESTING)2020-01-17 23:41:00 Test Item Value Reference Range Interpretation Comments SARS-CoV-2 Rapid ID NOW Not Detected Not Detected (test code = 29884-0) ROBSON (test code = ROBSON) ID NOW COVID-19 Assay is an isothermal nucleic acid amplification test intended for the qualitative detection of nucleic acid from SARS-CoV-2 viral RNA in nasopharyngeal ([employer]) specimens. It is used under Emergency Use Authorization (EUA) by FDA. The limit of detection (LOD) of the assay is 125 Genome Equivalents/mL. A positive result is indicative of the presence of SARS-CoV-2 RNA. ?Clinical correlation with patient history and other diagnostic information is necessary to determine patient infection status. A negative (Not Detected) result does not preclude SARS-CoV-2 infection. In patients with clinical symptoms and other tests that are consistent with SARS-CoV-2 infection, negative results should be treated as presumptive negative and a new specimen should be tested with alternative PCR molecular test. Invalid: Please collect a new specimen for repeat patient testing if clinically indicated. Lab Interpretation Normal (test code = 00842-9) [facility] CenteraPTT2020-08-12 23:33:00 Test Item Value Reference Range Interpretation Comments APTT Patient (test code = See_Comment [ Automated message] 3173-2) The system [employer] generated this result transmitted ref erence range: 26 - 36 Seconds. The re ference range was not u sed to interpret this result as normal/abnor mal. Lab Interpretation (test Normal code = 08318-4) [facility] CenterProthrombin Time (PT) / [id number] 23:33:00 Test Item Value Reference Range Interpretation Comments PROTIME PATIENT (test See_Comment [Auto mated message] code = 5964-2) The system [employer] generated this result transmitted ref erence range: 10.1 - 1 2.6 Seconds. The re ference range was not u sed to interpret this result as normal/abnor mal. INR (test code = 6301-6) Nor mal INR <1.1; Warfarin Therap eutic range 2.0 to 3. 0 or 2.5 to 3.5, dep ending upon the indica tions. Lab Interpretation (test Normal code = 94292-8) [facility] CenterCBC with [id number] 23:23:00 Test Item Value Reference Range Interpretation Comments WBC (test code = See_Comment H [Automated 8805-2) message] The sy stem which generated this result transmitted reference range : 4.30 - 11.10 10*3/?L. The reference range was not used to interpret this result as normal/abnormal . RBC (test code = See_Comment [Automated 169-8) message] The sy stem which generated this result transmitted reference range : 3.93 - 5.25 10*6/?L. The reference range was not used to interpret this result as normal/abnormal . HGB (test code = 11.6 g/dL 11.6-15 718-7) HCT (test code = 36.8 % 35.7-45.2 4544-3) MCV (test code = 76.5 fL 80.6-95.5 L 787-2) MCH (test code = 24.1 pg 25.9-32.8 L 785-6) MCHC (test code = 31.5 g/dL 31.6-35.1 L 786-4) RDW-SD (test code = 44.1 fL 39-49.9 37759-4) RDW-CV (test code = 15.9 % 12-15.5 H 788-0) PLT (test code = See_Comment H [Automated 777-3) message] The sy stem which generated this result transmitted reference range : 166 - 358 10*3/ ?L. The reference r shahana was not used to interpret this result as normal/abnormal . MPV (test code = 10.9 fL 9.5-12.9 64573-8) NRBC/100 WBC (test See_Comment [Automat ed code = 2434286359) message] The system which generated this result transmitted reference range : 0.0 - 10.0 /100 WBCs. The refer ence range was not u sed to interpret th is result as normal/abnormal . NRBC x10^3 (test code <0.01 See_Comment [Auto mated = 7993256724) message] The s ystem which generated this result transmitted reference range : 10*3/?L. The reference range was not used to interpret this result as normal/abnormal . GRAN MAT (NEUT) % 69.1 % (test code = 770-8) IMM GRAN % (test code 0.80 % = 5111820776) LYMPH % (test code = 19.6 % 736-9) MONO % (test code = 7.8 % 5905-5) EOS % (test code = 2.1 % 713-8) BASO % (test code = 0.6 % 706-2) GRAN MAT x10^3(ANC) 8.26 10*3/uL 1.88-7.09 H (test code = 0615280658) IMM GRAN x10^3 (test 0.10 10*3/uL 0-0.06 H code = 4274642409) LYMPH x10^3 (test code 2.34 10*3/uL 1.32-3.29 = 731-0) MONO x10^3 (test code 0.93 10*3/uL 0.33-0.92 H = 742-7) EOS x10^3 (test code = 0.25 10*3/uL 0.03-0.39 711-2) BASO x10^3 (test code 0.07 10*3/uL 0.01-0.07 = 704-7) Lab Interpretation Abnormal (test code = 38058-1) [facility] 1 [id number] 22:15:09Findings and Impression: ?Clear lungs. No pleural effusion or pneumothorax.Heart size is normal. No acute osseous abnormality. PORTABLE CHEST RADIOGRAPH History: abd pain Comparison: 01/05/2020 TECHNIQUE: AP view of the chest. [facility], Radiant Results Inft User - 01/17/2020 5:16 PM CDTPORTABLE CHEST RADIOGRAPHHistory: abd pain Comparison: 01/05/2020TECHNIQUE: AP view of the chest.IMPRESSIONFindings and Impression: Clear lungs. No pleural effusion or pneumothorax.Heart size is normal. No acute osseous abnormality.[facility] ABDOMEN PELVIS W [id number] 23:14:57 No acute abnormality.6 EXAM: CT ABDOMEN AND PELVIS WITH CONTRAST HISTORY: Abdominal pain, acute, generalized. History of colectomy withileal rectal anastomosis in 2014. COMPARISON: 09/27/2018 DOSE: 1383.9 mGy-cm TECHNIQUE: Axial images of the abdomen and pelvis were acquired afteradministration of IV contrast. Coronal and sagittal reconstructions werealso created. FINDINGS: LOWER CHEST: The lungs bases are clear. No pleural or pericardial effusion. HEPATOBILIARY: No hepatomegaly. No biliary ductal dilatation.. Noextrahepatic biliary ductal dilation. ?No hyperdense stones. SPLEEN: No splenomegaly. Subcentimeter hypodensity (3/) may represent acyst or hemangioma. PANCREAS: No ductal dilation, or solid masses. ADRENAL GLANDS: No adrenal nodules. KIDNEYS: No hydronephrosis, solid masses, or stones.PERITONEUM AND RETROPERITONEUM: No free air or free fluid. LYMPH NODES: No lymphadenopathy is seen. GI TRACT: Prior total colectomy and ileorectal anastomosis. Suture lineabout the small bowel in the right lower quadrant. No bowel distention orwall thickening. PELVIS/BLADDER: The uterus appear normal. Subcentimeter nabothian cysts. Noadnexal masses. VESSELS: Unremarkable. BONES AND SOFT TISSUES: No suspicious lytic or sclerotic bone lesions.Interval postsurgical changes of repair in the left lower abdominal wallwith mesh replacement. [facility], Radiant Results Inft User - 01/05/2020 6:16 PM CDTEXAM: CT A BDOMEN AND PELVIS WITH CONTRASTHISTORY: Abdominal pain, acute, generalized. History of colectomy withileal rectal anastomosis in 2014.COMPARISON: 09/27/2018DOSE: 1383.9 mGy-cmTECHNIQUE: Axial images of the abdomen and pelvis were acquired afteradministration of IV contrast. Coronal and sagittal reconstr uctions werealso created.FINDINGS:LOWER CHEST: The lungs bases are clear. No pleural or pericardial effusion.HEPATOBILIARY: No hepatomegaly. No biliary ductal dilatation.. Noextrahepatic biliary ductaldilation. No hyperdense stones.SPLEEN: No splenomegaly. Subcentimeter hypodensity (3/25) may represent acyst or hemangioma.PANCREAS: No ductal dilation, or solid masses.ADRENAL GLANDS: No adrenal nodules.KIDNEYS: No hydronephrosis, solid masses, or stones.PERITONEUM AND RETROPERITONEUM: No free air orfree fluid.LYMPH NODES: No lymphadenopathy is seen.GI TRACT: Prior total colectomy and ileorectal eva stomosis. Suture lineabout the small bowel in the right lower quadrant. No bowel distention orwall thickening.PELVIS/BLADDER: The uterus appear normal. Subcentimeter nabothian cysts. Noadnexal masses.VESSELS: Unremarkable.BONES AND SOFT TISSUES: No suspicious lytic or sclerotic bone lesions.Interval po stsurgical changes of repair in the left lower abdominal wallwith mesh replacement.IMPRESSIONNo acute abnormality.6UnTexas [facility] Test, [id number] 21:53:00 Test Item Value Reference Range Interpretation Comments PREG SERUM (test code Negative = 0244555220) ROBSON (test code = ROBSON) Less than 10 IU/L. ?If low titer or ectopic is suspected, resubmit specimen in 48-72 hours. [facility] CenterB[facility] (NA, K, CL, CO2, GLUCOSE, BUN, CREATININE, CA)2020-01-05 21:53:00 Test Item Value Reference Range Interpretation Comments NA (test code = 139 mmol/L 135-145 6782402498) K (test code = 4.4 mmol/L 3.5-5 Slight hemoly sis 5524160827) CL (test code = 102 mmol/L 98-108 1276285341) CO2 TOTAL (test 28 mmol/L -31 code = 2701646666) AGAP (test code = 2-16 0749445700) BUN (test code = 13 mg/dL 7-23 Slight hemo lysis 2431473893) GLUCOSE (test code 87 mg/dL 70-110 = 0192696220) CREATININE (test 0.73 mg/dL 0.5-1.04 code = 9545810220) CALCIUM (test code 9.5 mg/dL 8.6-10.6 = 9180673485) eGFR Calculation mL/min/1.73m2 (Non-) (test code = 9175755889) eGFR Calculation mL/min/1.73m2 () (test code = 3884755722) ROBSON (test code = Association of ROBSON) Glomerular Filtration Rate (GFR) and Staging of Kidney Disease* + ----+ ------+ +| GFR (mL/min/1.73 m2) ?| With Kidney Damage ?| ?Without Kidney Damage+ +--------- +------- +| ?>90 ?| ?Stage one ?| ? Normal ?+ -----+ -------+ +| ?60-89 ?| ?Stage two ?| ? Decreased GFR ? + ----+ ------+ +| ?30-59 ?| ?Stage three ?| ? Stage three ? + ----+ ------+ +| ?15-29 ?| ?Stage four ? | ? Stage four ?+ -----+ -------+ +| ?<15 (or dialysis) ? ?| ?Stage five ? | ? Stage five ?+ -----+ -------+ + *Each stage assumes the associated GFR level has been in effect for at least three months. ?Stages 1 to 5, with or without kidney disease, indicate chronic kidney disease. Notes: Determination of stages one and two (with eGFR >59mL/min/1.73 m2) requires estimation of kidney damage for at least three months as defined by structural or functional abnormalities of the kidney, manifested by either:Pathological abnormalities or Markers of kidney damage (including abnormalities in the composition of the blood or urine or abnormalities in imaging tests). [facility] CenterHepatic Function Panel (ALB, T.PRO, BILI T, BU/BC, ALT, AST, ALK PHOS)2020-01-05 21:53:00 Test Item Value Reference Range Interpretation Comments TOTAL BILI (test code = 6244809660) 0.5 mg/dL 0.1-1.1 BILI UNCON (test code = 7912406761) 0.2 mg/dL 0.1-1.1 BILI CONJ (test code = 3462817798) 0.0 mg/dL 0-0.3 T PROTEIN (test code = 2880247561) 7.6 g/dL 6.3-8.2 ALBUMIN (test code = 3434198180) 4.4 g/dL 3.5-5 ALK PHOS (test code = 7808170046) 56 U/L 34-122 ALTv (test code = 1742-6) 19 U/L 5-35 AST(SGOT) (test code = 0948479339) 37 U/L 13-40 Lab Interpretation (test code = Normal 97119-3) [facility] CenterLipase [id number] 21:53:00 Test Item Value Reference Range Interpretation Comments LIPASE (test code = 2823303190) 114 U/L 0-220 Lab Interpretation (test code = Normal 69464-2) [facility] CenterUrinalysis2020-07-31 21:52:00 Test Item Value Reference Range Interpretation Comments APPEARANCE (test code = Clear Clear 2876868903) COLOR (test code = Red Yellow A 3014562890) PH (test code = 4.8-8.0 9227053270) SP GRAVITY (test code = 1.003-1.030 0904528802) GLU U QUAL (test code = Normal Normal 9006066617) BLOOD (test code = 3+ Negative A 0923880434) KETONES (test code = Negative Negative 1690299033) PROTEIN (test code = 100 mg/dL Negative A 2887-8) UROBILIN (test code = Normal Normal 9024888998) BILIRUBIN (test code = Negative Negative 7273467029) NITRITE (test code = Negative Negative 9568949554) LEUK LUIZ (test code = 25/uL Negative A 7307073911) RBC/HPF (test code = See_Comment H [Autom ated message] 0057393597) The system [employer] generated this result transmit octavio reference range : 0 - 3 HPF. The refe rence range was not u sed to interpret th is result as normal/abnormal . WBC/HPF (test code = See_Comment H [Autom ated message] 1616426326) The system [employer] generated this result transmit octavio reference range : 0 - 5 HPF. The refe rence range was not u sed to interpret th is result as normal/abnormal . BACTERIA (test code = Few Negative A 7811538295) SQ EPITH (test code = See_Comment [Auto mated message] 7781394520) The system [employer] generated this result transmit octavio reference range : <=2 HPF. The refere nce range was not u sed to interpret th is result as normal/abnormal . Lab Interpretation (test Abnormal code = 05957-3) [facility] CenterProthrombin Time (PT) / [id number] 21:36:00 Test Item Value Reference Range Interpretation Comments PROTIME PATIENT (test See_Comment [Auto mated message] code = 5964-2) The system [employer] generated this result transmitted ref erence range: 10.1 - 1 2.6 Seconds. The re ference range was not u sed to interpret this result as normal/abnor mal. INR (test code = 6301-6) Nor mal INR <1.1; Warfarin Therap eutic range 2.0 to 3. 0 or 2.5 to 3.5, dep ending upon the indica tions. Lab Interpretation (test Normal code = 11236-2) [facility] CenterCB with [id number] 21:29:00 Test Item Value Reference Range Interpretation Comments WBC (test code = See_Comment [Automated 6690-2) message] The sy stem which generated this result transmitted reference range : 4.30 - 11.10 10*3/?L. The reference range was not used to interpret this result as normal/abnormal . RBC (test code = See_Comment [Automated 789-8) message] The sy stem which generated this result transmitted reference range : 3.93 - 5.25 10*6/?L. The reference range was not used to interpret this result as normal/abnormal . HGB (test code = 11.5 g/dL 11.6-15 L 718-7) HCT (test code = 36.6 % 35.7-45.2 4544-3) MCV (test code = 77.9 fL 80.6-95.5 L 787-2) MCH (test code = 24.5 pg 25.9-32.8 L 785-6) MCHC (test code = 31.4 g/dL 31.6-35.1 L 786-4) RDW-SD (test code = 43.9 fL 39-49.9 79355-1) RDW-CV (test code = 15.6 % 12-15.5 H 788-0) PLT (test code = See_Comment H [Automated 777-3) message] The sy stem which generated this result transmitted reference range : 166 - 358 10*3/ ?L. The reference r shahana was not used to interpret this result as normal/abnormal . MPV (test code = 10.6 fL 9.5-12.9 90457-8) NRBC/100 WBC (test See_Comment [Automat ed code = 2687468782) message] The system which generated this result transmitted reference range : 0.0 - 10.0 /100 WBCs. The refer ence range was not u sed to interpret th is result as normal/abnormal . NRBC x10^3 (test code <0.01 See_Comment [Auto mated = 3878432760) message] The s ystem which generated this result transmitted reference range : 10*3/?L. The reference range was not used to interpret this result as normal/abnormal . GRAN MAT (NEUT) % 66.2 % (test code = 770-8) IMM GRAN % (test code 0.60 % = 8120008075) LYMPH % (test code = 23.5 % 736-9) MONO % (test code = 6.8 % 5905-5) EOS % (test code = 2.4 % 713-8) BASO % (test code = 0.5 % 706-2) GRAN MAT x10^3(ANC) 6.12 10*3/uL 1.88-7.09 (test code = 7533912163) IMM GRAN x10^3 (test 0.06 10*3/uL 0-0.06 code = 6761139283) LYMPH x10^3 (test code 2.17 10*3/uL 1.32-3.29 = 731-0) MONO x10^3 (test code 0.63 10*3/uL 0.33-0.92 = 742-7) EOS x10^3 (test code = 0.22 10*3/uL 0.03-0.39 711-2) BASO x10^3 (test code 0.05 10*3/uL 0.01-0.07 = 704-7) Lab Interpretation Abnormal (test code = 63413-4) [facility] [id number] 07:34:00 Test Item Value Reference Range Interpretation Comments U Preg (test code = U Negative (12/09/15 2:34 Preg) AM) [facility] [id number] 07:34:00 Test Item Value Reference Range Interpretation Comments U Preg (test code = U Negative (12/09/15 2:34 Preg) AM) [facility] [place] [facility] [id number] 07:34:00 Test Item Value Reference Range Interpretation Comments U Preg (test code = U Negative (12/09/15 2:34 Preg) AM) [facility] [place] [facility] [id number] 04:50:00 Test Item Value Reference Range Interpretation Comments Lactic Acid WB (test code = Lactic Acid 1.3 0.5-2.2 WB) [facility] [id number] 04:50:00 Test Item Value Reference Range Interpretation Comments UA Mucus (test code = UA Mucus) Rare /LPF [facility] [id number] 04:50:00 Test Item Value Reference Range Interpretation Comments UA Bacteria (test code = UA Moderate /HPF Bacteria) [facility] [id number] 04:50:00 Test Item Value Reference Range Interpretation Comments UA Amorph Sandhya (test code = UA Few /HPF Amorph Sandhya) [facility] [id number] 04:50:00 Test Item Value Reference Range Interpretation Comments UA RBC (test code = 0-2 /HPF See_Comment [Automa octavio message] The UA RBC) system which ge nerated this result tra nsmitted reference range : <=2. The reference range was not used to interpr et this result as franklin l/abnormal. [facility] AND [id number] 04:50:00 Test Item Value Reference Range Interpretation Comments UA [place] Yeast (test code = UA Occasional /HPF [place] Yeast) [facility] AND [id number] 04:50:00 Test Item Value Reference Range Interpretation Comments UA Sq Epi (test code = UA Sq Epi) Few /LPF [facility] AND [id number] 04:50:00 Test Item Value Reference Range Interpretation Comments UA WBC (test code = UA WBC) 0-2 /HPF [facility] AND [id number] 04:50:00 Test Item Value Reference Range Interpretation Comments UA pH (test code = UA pH) 6.0 1 5.0-8.0 [facility] AND [id number] 04:50:00 Test Item Value Reference Range Interpretation Comments UA Spec Grav (test code = UA Spec 1.015 1 Grav) [facility] AND [id number] 04:50:00 Test Item Value Reference Range Interpretation Comments UA Glucose (test code = UA Negative mg/dL Glucose) [facility] AND [id number] 04:50:00 Test Item Value Reference Range Interpretation Comments UA Protein (test code = UA Negative mg/dL Protein) [facility] AND [id number] 04:50:00 Test Item Value Reference Range Interpretation Comments UA Turbidity (test code Slight Cloudy (12/08/15 = UA Turbidity) 11:50 PM) [facility] AND [id number] 04:50:00 Test Item Value Reference Range Interpretation Comments UA Ketones (test code = UA Ketones) 15 mg/dL [facility] AND [id number] 04:50:00 Test Item Value Reference Range Interpretation Comments UA Urobilinogen (test code = UA 0.2 0.1-1.0 Urobilinogen) [facility] AND [id number] 04:50:00 Test Item Value Reference Range Interpretation Comments UA Blood (test code = Negative (12/08/15 11:50 UA Blood) PM) [facility] [id number] 04:50:00 Test Item Value Reference Range Interpretation Comments UA Color (test code = Yellow *NA*(12/08/15 UA Color) 11:50 PM) [facility] [id number] 04:50:00 Test Item Value Reference Range Interpretation Comments UA Nitrite (test code Negative (12/08/15 11:50 = UA Nitrite) PM) [facility] [id number] 04:50:00 Test Item Value Reference Range Interpretation Comments UA Bili (test code = Negative *NA*(12/08/15 UA Bili) 11:50 PM) [facility] [id number] 04:50:00 Test Item Value Reference Range Interpretation Comments UA Leuk Est (test Negative (12/08/15 11:50 code = UA Leuk Est) PM) [facility] [id number] 04:50:00 Test Item Value Reference Range Interpretation Comments Lactic Acid WB (test code = Lactic Acid 1.3 0.5-2.2 WB) [facility] [id number] 04:50:00 Test Item Value Reference Range Interpretation Comments UA Mucus (test code = UA Mucus) Rare /LPF [facility] [id number] 04:50:00 Test Item Value Reference Range Interpretation Comments UA Bacteria (test code = UA Moderate /HPF Bacteria) [facility] [id number] 04:50:00 Test Item Value Reference Range Interpretation Comments UA Amorph Sandhya (test code = UA Few /HPF Amorph Sandhya) [facility] [id number] 04:50:00 Test Item Value Reference Range Interpretation Comments UA RBC (test code = 0-2 /HPF See_Comment [Automa octavio message] The UA RBC) system which ge nerated this result tra nsmitted reference range : <=2. The reference range was not used to interpr et this result as franklin l/abnormal. [facility] [id number] 04:50:00 Test Item Value Reference Range Interpretation Comments UA [place] Yeast (test code = UA Occasional /HPF [place] Yeast) [facility] [id number] 04:50:00 Test Item Value Reference Range Interpretation Comments UA Sq Epi (test code = UA Sq Epi) Few /LPF [facility] [id number] 04:50:00 Test Item Value Reference Range Interpretation Comments UA WBC (test code = UA WBC) 0-2 /HPF [facility] [id number] 04:50:00 Test Item Value Reference Range Interpretation Comments UA pH (test code = UA pH) 6.0 1 5.0-8.0 [facility] [id number] 04:50:00 Test Item Value Reference Range Interpretation Comments UA Spec Grav (test code = UA Spec 1.015 1 Grav) [facility] [id number] 04:50:00 Test Item Value Reference Range Interpretation Comments UA Glucose (test code = UA Negative mg/dL Glucose) [facility] [id number] 04:50:00 Test Item Value Reference Range Interpretation Comments UA Protein (test code = UA Negative mg/dL Protein) [facility] [id number] 04:50:00 Test Item Value Reference Range Interpretation Comments UA Turbidity (test code Slight Cloudy (12/08/15 = UA Turbidity) 11:50 PM) [facility] [id number] 04:50:00 Test Item Value Reference Range Interpretation Comments UA Ketones (test code = UA Ketones) 15 mg/dL [facility] [id number] 04:50:00 Test Item Value Reference Range Interpretation Comments UA Urobilinogen (test code = UA 0.2 0.1-1.0 Urobilinogen) [facility] [id number] 04:50:00 Test Item Value Reference Range Interpretation Comments UA Blood (test code = Negative (12/08/15 11:50 UA Blood) PM) [facility] [id number] 04:50:00 Test Item Value Reference Range Interpretation Comments UA Color (test code = Yellow *NA*(12/08/15 UA Color) 11:50 PM) [facility] [id number] 04:50:00 Test Item Value Reference Range Interpretation Comments UA Nitrite (test code Negative (12/08/15 11:50 = UA Nitrite) PM) [facility] [id number] 04:50:00 Test Item Value Reference Range Interpretation Comments UA Bili (test code = Negative *NA*(12/08/15 UA Bili) 11:50 PM) [facility] [id number] 04:50:00 Test Item Value Reference Range Interpretation Comments UA Leuk Est (test Negative (12/08/15 11:50 code = UA Leuk Est) PM) [facility] [id number] 04:50:00 Test Item Value Reference Range Interpretation Comments Lactic Acid WB (test code = Lactic Acid 1.3 0.5-2.2 WB) [facility] [id number] 04:50:00 Test Item Value Reference Range Interpretation Comments UA Mucus (test code = UA Mucus) Rare /LPF [facility] [id number] 04:50:00 Test Item Value Reference Range Interpretation Comments UA Bacteria (test code = UA Moderate /HPF Bacteria) [facility] [id number] 04:50:00 Test Item Value Reference Range Interpretation Comments UA Amorph Sandhya (test code = UA Few /HPF Amorph Sandhya) [facility] [id number] 04:50:00 Test Item Value Reference Range Interpretation Comments UA RBC (test code = 0-2 /HPF See_Comment [Automa octavio message] The UA RBC) system which ge nerated this result tra nsmitted reference range : <=2. The reference range was not used to interpr et this result as franklin l/abnormal. [facility] [id number] 04:50:00 Test Item Value Reference Range Interpretation Comments UA [place] Yeast (test code = UA Occasional /HPF [place] Yeast) [facility] [id number] 04:50:00 Test Item Value Reference Range Interpretation Comments UA Sq Epi (test code = UA Sq Epi) Few /LPF [facility] [id number] 04:50:00 Test Item Value Reference Range Interpretation Comments UA WBC (test code = UA WBC) 0-2 /HPF [facility] [id number] 04:50:00 Test Item Value Reference Range Interpretation Comments UA pH (test code = UA pH) 6.0 1 5.0-8.0 [facility] [id number] 04:50:00 Test Item Value Reference Range Interpretation Comments UA Spec Grav (test code = UA Spec 1.015 1 Grav) [facility] [id number] 04:50:00 Test Item Value Reference Range Interpretation Comments UA Glucose (test code = UA Negative mg/dL Glucose) [facility] [id number] 04:50:00 Test Item Value Reference Range Interpretation Comments UA Protein (test code = UA Negative mg/dL Protein) [facility] [id number] 04:50:00 Test Item Value Reference Range Interpretation Comments UA Turbidity (test code Slight Cloudy (12/08/15 = UA Turbidity) 11:50 PM) [facility] [id number] 04:50:00 Test Item Value Reference Range Interpretation Comments UA Ketones (test code = UA Ketones) 15 mg/dL [facility] [id number] 04:50:00 Test Item Value Reference Range Interpretation Comments UA Urobilinogen (test code = UA 0.2 0.1-1.0 Urobilinogen) [facility] [id number] 04:50:00 Test Item Value Reference Range Interpretation Comments UA Blood (test code = Negative (12/08/15 11:50 UA Blood) PM) [facility] [id number] 04:50:00 Test Item Value Reference Range Interpretation Comments UA Color (test code = Yellow *NA*(12/08/15 UA Color) 11:50 PM) [facility] [id number] 04:50:00 Test Item Value Reference Range Interpretation Comments UA Nitrite (test code Negative (12/08/15 11:50 = UA Nitrite) PM) [facility] [id number] 04:50:00 Test Item Value Reference Range Interpretation Comments UA Bili (test code = Negative *NA*(12/08/15 UA Bili) 11:50 PM) [facility] [id number] 04:50:00 Test Item Value Reference Range Interpretation Comments UA Leuk Est (test Negative (12/08/15 11:50 code = UA Leuk Est) PM) [facility] CenterYmrrkvdRGKDBXHBTAKH8970-86-97 03:15:00 Test Item Value Reference Range Interpretation Comments CO2 (test code = CO2) 25 24-32 [id number] 03:15:00 Test Item Value Reference Range Interpretation Comments Glucose Lvl (test code = Glucose Lvl) 89 70-99 [facility]YpymzlkLJLGNPCZMJTJ2337-53-12 03:15:00 Test Item Value Reference Range Interpretation Comments eGFR (test code = eGFR) 83 [id number] 03:15:00 Test Item Value Reference Range Interpretation Comments Eosinophils (test code = 1.4 See_Comment [A utomated message] The Eosinophils) system which ge nerated this result tra nsmitted reference range : <=4.0. The reference r shahana was not used to int erpret this result as normal/abnormal . [id number] 03:15:00 Test Item Value Reference Range Interpretation Comments Segs (test code = Segs) 78.6 45.0-75.0 [facility]iscoPrugerqTVYXRQFDPP4146-09-02 03:15:00 Test Item Value Reference Range Interpretation Comments Monocytes (test code = Monocytes) 4.0 2.0-12.0 [facility][id number] 03:15:00 Test Item Value Reference Range Interpretation Comments Lymphocytes (test code = Lymphocytes) 15.2 20.0-40.0 [facility]iscoChmcqakZNQFUECSSG0731-11-40 03:15:00 Test Item Value Reference Range Interpretation Comments Segs-Bands # (test code = Segs-Bands #) 13.3 1.5-8.1 [id number] 03:15:00 Test Item Value Reference Range Interpretation Comments Basophils (test code = 0.8 See_Comment [Aut omated message] The Basophils) system which ge nerated this result tra nsmitted reference range : <=1.0. The reference r shahana was not used to int erpret this result as normal/abnormal . [facility]iscoNdsvhxcCKVZAFWTZO4721-32-32 03:15:00 Test Item Value Reference Range Interpretation Comments Monocytes # (test code 0.7 See_Comment [Aut omated message] The = Monocytes #) system which generated this result tra nsmitted reference range : <=0.8. The reference r shahana was not used to int erpret this result as normal/abnormal . [facility]is[id number] 03:15:00 Test Item Value Reference Range Interpretation Comments Lymphocytes # (test code = Lymphocytes 2.6 1.0-5.5 #) [facility]iscoKftbpciSHDPMLLZHY9750-79-30 03:15:00 Test Item Value Reference Range Interpretation Comments Microcyte (test code = 2+ *ABN*(12/08/15 Microcyte) 10:15 PM) [id number] 03:15:00 Test Item Value Reference Range Interpretation Comments Basophils # (test code 0.1 See_Comment [Aut omated message] The = Basophils #) system which generated this result tra nsmitted reference range : <=0.2. The reference r shahana was not used to int erpret this result as normal/abnormal . [id number] 03:15:00 Test Item Value Reference Range Interpretation Comments Eosinophils # (test code 0.2 See_Comment [A utomated message] The = Eosinophils #) system whic h generated this result tra nsmitted reference range : <=0.5. The reference r shahana was not used to int erpret this result as normal/abnormal . [facility]iscoIyblwgtXHFKSVAHEY8315-90-21 03:15:00 Test Item Value Reference Range Interpretation Comments RDW (test code = RDW) 16.8 11.5-14.5 [facility]iscoLyqfnzeTTEGUQBFUM1437-12-89 03:15:00 Test Item Value Reference Range Interpretation Comments MCH (test code = MCH) 22.1 pg 27.0-31.0 [facility]iscoNnjflqbCNUWHLFGVG7575-32-47 03:15:00 Test Item Value Reference Range Interpretation Comments MCV (test code = MCV) 69.4 80.0-98.0 [facility]iscoGbwahhfMAMTHJXQAL9019-02-05 03:15:00 Test Item Value Reference Range Interpretation Comments Hct (test code = Hct) 33.8 36.0-48.0 [facility] FriscoFlhtsvvANAWKUNISW1992-12-38 03:15:00 Test Item Value Reference Range Interpretation Comments RBC (test code = RBC) 4.87 4.20-5.40 [facility]iscoLgininlFXLQLKDNQM4669-17-31 03:15:00 Test Item Value Reference Range Interpretation Comments MPV (test code = MPV) 8.5 7.4-10.4 [facility]iscoMiyloysZSNCFTESRE7655-56-83 03:15:00 Test Item Value Reference Range Interpretation Comments Platelet (test code = Platelet) 330 133-450 [facility]iscoJfghbinOVMPMQAEVH2989-69-36 03:15:00 Test Item Value Reference Range Interpretation Comments Hgb (test code = Hgb) 10.7 12.0-16.0 [facility]iscoJulyjgrSACIDCYUPM8528-97-10 03:15:00 Test Item Value Reference Range Interpretation Comments MCHC (test code = MCHC) 31.8 32.0-36.0 [facility]iscoFzkputuDTXRTSEUSN5986-80-82 03:15:00 Test Item Value Reference Range Interpretation Comments WBC (test code = WBC) 16.9 3.7-10.4 [facility]TjzazlxAYLXDCZZLHML5853-04-42 03:15:00 Test Item Value Reference Range Interpretation Comments AGAP (test code = AGAP) 11.4 10.0-20.0 [facility]awCwbychuSWHGIKXBIJKZ9287-44-35 03:15:00 Test Item Value Reference Range Interpretation Comments Creatinine Lvl (test code = Creatinine 0.91 0.50-1.40 Lvl) [facility]awFduaarpUPGQGJCEJPVX5123-86-23 03:15:00 Test Item Value Reference Range Interpretation Comments BUN (test code = BUN) 14 7-22 [facility]awTsntnltBJGEQYJHKJMV6039-10-86 03:15:00 Test Item Value Reference Range Interpretation Comments Potassium Lvl (test code = Potassium 3.4 3.5-5.1 Lvl) [facility]awVihjaycLAWVHKOOMCXI5979-68-18 03:15:00 Test Item Value Reference Range Interpretation Comments Sodium Lvl (test code = Sodium Lvl) 140 135-145 [facility]awLozsqhdYTMMJBVJJMAL4033-68-08 03:15:00 Test Item Value Reference Range Interpretation Comments Chloride Lvl (test code = Chloride Lvl) 107 95-109 [facility]awLigfmxbGSYNUNUBGBID3335-54-79 03:15:00 Test Item Value Reference Range Interpretation Comments Calcium Lvl (test code = Calcium Lvl) 8.4 8.5-10.5 [facility]awFgectcsQEHBXSHKMXHO8218-12-22 03:15:00 Test Item Value Reference Range Interpretation Comments CO2 (test code = CO2) 25 24-32 [facility]awLqxtaceAZWXYMIIJFUX8115-54-38 03:15:00 Test Item Value Reference Range Interpretation Comments Glucose Lvl (test code = Glucose Lvl) 89 70-99 [facility]awEguxsuzMTKIURKIJXUB8690-83-78 03:15:00 Test Item Value Reference Range Interpretation Comments eGFR (test code = eGFR) 83 [facility]awYhengwuGTYOBDBDIJYO8822-99-74 03:15:00 Test Item Value Reference Range Interpretation Comments AGAP (test code = AGAP) 11.4 10.0-20.0 [facility]awTisvpixKWEQQISPRZHW7146-62-26 03:15:00 Test Item Value Reference Range Interpretation Comments Creatinine Lvl (test code = Creatinine 0.91 0.50-1.40 Lvl) [facility]nmttgvHDNRWWOHXG3376-14-09 03:15:00 Test Item Value Reference Range Interpretation Comments Eosinophils (test code = 1.4 See_Comment [A utomated message] The Eosinophils) system which ge nerated this result tra nsmitted reference range : <=4.0. The reference r shahana was not used to int erpret this result as normal/abnormal . [facility]CfmlgoqMVXIFLJZKNRK4692-68-93 03:15:00 Test Item Value Reference Range Interpretation Comments BUN (test code = BUN) 14 7-22 [facility]awOfzcymmZLFOWQUHTKKD8041-99-20 03:15:00 Test Item Value Reference Range Interpretation Comments Potassium Lvl (test code = Potassium 3.4 3.5-5.1 Lvl) [facility]awHqwyqfuYNJOHEDGCKAF4767-30-97 03:15:00 Test Item Value Reference Range Interpretation Comments Sodium Lvl (test code = Sodium Lvl) 140 135-145 [facility]awIandnuwAYVIATLLPEKT5735-31-46 03:15:00 Test Item Value Reference Range Interpretation Comments Chloride Lvl (test code = Chloride Lvl) 107 95-109 [facility]awFfrpwloOXFLQOLPZMIK5525-54-17 03:15:00 Test Item Value Reference Range Interpretation Comments Calcium Lvl (test code = Calcium Lvl) 8.4 8.5-10.5 [facility]awDutitflDOHRPFUUJOZC6553-43-75 03:15:00 Test Item Value Reference Range Interpretation Comments CO2 (test code = CO2) 25 24-32 [facility]awBfiyvlqAAQVXLJDOJUM4194-09-37 03:15:00 Test Item Value Reference Range Interpretation Comments Glucose Lvl (test code = Glucose Lvl) 89 70-99 [facility] CenterGxpywdoXDUSDMNIYTKJ9711-78-51 03:15:00 Test Item Value Reference Range Interpretation Comments eGFR (test code = eGFR) 83 [facility]iscoWomypmnFNIVEBWRIJ0588-58-52 03:15:00 Test Item Value Reference Range Interpretation Comments Eosinophils (test code = 1.4 See_Comment [A utomated message] The Eosinophils) system which ge nerated this result tra nsmitted reference range : <=4.0. The reference r shahana was not used to int erpret this result as normal/abnormal . [facility]iscoSieiotpYFDXRTWBGN6016-31-05 03:15:00 Test Item Value Reference Range Interpretation Comments Segs (test code = Segs) 78.6 45.0-75.0 [facility]iscoAxxhtpeLZIFOMCVHQ6459-91-02 03:15:00 Test Item Value Reference Range Interpretation Comments Segs (test code = Segs) 78.6 45.0-75.0 [facility]iscoDfgznjyLXIAZBZHWC2214-42-42 03:15:00 Test Item Value Reference Range Interpretation Comments Monocytes (test code = Monocytes) 4.0 2.0-12.0 [facility]iscoDgvusbjRKPSUPFEVS3797-74-63 03:15:00 Test Item Value Reference Range Interpretation Comments Lymphocytes (test code = Lymphocytes) 15.2 20.0-40.0 [facility]iscoSiaqsaxVRGLERWSTH4425-89-93 03:15:00 Test Item Value Reference Range Interpretation Comments Segs-Bands # (test code = Segs-Bands #) 13.3 1.5-8.1 [facility]iscoTtpmkukAGIYKUNYJO1483-11-72 03:15:00 Test Item Value Reference Range Interpretation Comments Basophils (test code = 0.8 See_Comment [Aut omated message] The Basophils) system which ge nerated this result tra nsmitted reference range : <=1.0. The reference r shahana was not used to int erpret this result as normal/abnormal . [facility]iscoVoannvhHZLFRMMQEP9870-87-27 03:15:00 Test Item Value Reference Range Interpretation Comments Monocytes # (test code 0.7 See_Comment [Aut omated message] The = Monocytes #) system which generated this result tra nsmitted reference range : <=0.8. The reference r shahana was not used to int erpret this result as normal/abnormal . [facility]iscoLfcgkcrDHTRGEYICP1593-11-28 03:15:00 Test Item Value Reference Range Interpretation Comments Lymphocytes # (test code = Lymphocytes 2.6 1.0-5.5 #) [facility]iscoAdbtpstUOWJVBUMGM2808-96-32 03:15:00 Test Item Value Reference Range Interpretation Comments Microcyte (test code = 2+ *ABN*(12/08/15 Microcyte) 10:15 PM) [facility]iscoShlbnxnWRHAWWXIWH5164-69-34 03:15:00 Test Item Value Reference Range Interpretation Comments Basophils # (test code 0.1 See_Comment [Aut omated message] The = Basophils #) system which generated this result tra nsmitted reference range : <=0.2. The reference r shahana was not used to int erpret this result as normal/abnormal . [facility]iscoVxwcwssCPXNBARMIN4463-28-79 03:15:00 Test Item Value Reference Range Interpretation Comments Eosinophils # (test code 0.2 See_Comment [A utomated message] The = Eosinophils #) system whic h generated this result tra nsmitted reference range : <=0.5. The reference r shahana was not used to int erpret this result as normal/abnormal . [facility]iscoAebpxyuEKHNETQPYV2036-97-36 03:15:00 Test Item Value Reference Range Interpretation Comments RDW (test code = RDW) 16.8 11.5-14.5 [facility]iscoWqjtrxhIMZLGEMDUI7711-92-38 03:15:00 Test Item Value Reference Range Interpretation Comments Monocytes (test code = Monocytes) 4.0 2.0-12.0 [facility]iscoBzkfqneTZKVBCVNTC8720-17-25 03:15:00 Test Item Value Reference Range Interpretation Comments MCH (test code = MCH) 22.1 pg 27.0-31.0 [facility]iscoLutrxnaCGMPLQMFIU8521-09-92 03:15:00 Test Item Value Reference Range Interpretation Comments MCV (test code = MCV) 69.4 80.0-98.0 [facility]iscoZfegpfmNDWRKQZKSS2679-38-66 03:15:00 Test Item Value Reference Range Interpretation Comments Hct (test code = Hct) 33.8 36.0-48.0 [facility]iscoJssjhshUGRGRUKARX1574-22-58 03:15:00 Test Item Value Reference Range Interpretation Comments RBC (test code = RBC) 4.87 4.20-5.40 [facility]iscoLgmqkopFGQRULTOVE9232-07-09 03:15:00 Test Item Value Reference Range Interpretation Comments MPV (test code = MPV) 8.5 7.4-10.4 [facility]iscoMoofjreMIGUYUWSBR5470-38-03 03:15:00 Test Item Value Reference Range Interpretation Comments Platelet (test code = Platelet) 330 133-450 [facility]iscoThmtsbbESILZMPWJU5115-37-07 03:15:00 Test Item Value Reference Range Interpretation Comments Hgb (test code = Hgb) 10.7 12.0-16.0 [facility]iscoAmdydfeFLTPZQEDGJ6401-12-13 03:15:00 Test Item Value Reference Range Interpretation Comments MCHC (test code = MCHC) 31.8 32.0-36.0 [facility]iscoCwucuwyYJWCXAJOCJ5055-48-33 03:15:00 Test Item Value Reference Range Interpretation Comments WBC (test code = WBC) 16.9 3.7-10.4 [facility]iscoLundmmiGJIGTQKJWW3188-12-39 03:15:00 Test Item Value Reference Range Interpretation Comments Lymphocytes (test code = Lymphocytes) 15.2 20.0-40.0 [facility]iscoPyenkajZXWCLZTSYC6058-54-33 03:15:00 Test Item Value Reference Range Interpretation Comments Segs-Bands # (test code = Segs-Bands #) 13.3 1.5-8.1 [facility]iscoXdbopchRHJANYKVXE9575-56-06 03:15:00 Test Item Value Reference Range Interpretation Comments Basophils (test code = 0.8 See_Comment [Aut omated message] The Basophils) system which ge nerated this result tra nsmitted reference range : <=1.0. The reference r shahana was not used to int erpret this result as normal/abnormal . [facility]iscoYbpgvudUVNUTYGUCO6341-38-44 03:15:00 Test Item Value Reference Range Interpretation Comments Monocytes # (test code 0.7 See_Comment [Aut omated message] The = Monocytes #) system which generated this result tra nsmitted reference range : <=0.8. The reference r shahana was not used to int erpret this result as normal/abnormal . [facility]iscoYovwzwzUMWXJMJEVN5833-22-78 03:15:00 Test Item Value Reference Range Interpretation Comments Lymphocytes # (test code = Lymphocytes 2.6 1.0-5.5 #) [facility]iscoWxvqzvhKIPXKNBTMF7295-49-16 03:15:00 Test Item Value Reference Range Interpretation Comments Microcyte (test code = 2+ *ABN*(12/08/15 Microcyte) 10:15 PM) [facility]iscoBkgvfkwSRUBDAWFEO5386-95-30 03:15:00 Test Item Value Reference Range Interpretation Comments Basophils # (test code 0.1 See_Comment [Aut omated message] The = Basophils #) system which generated this result tra nsmitted reference range : <=0.2. The reference r shahana was not used to int erpret this result as normal/abnormal . [facility]iscoBvmhpwvKVTISXVSLS2345-99-05 03:15:00 Test Item Value Reference Range Interpretation Comments Eosinophils # (test code 0.2 See_Comment [A utomated message] The = Eosinophils #) system whic h generated this result tra nsmitted reference range : <=0.5. The reference r shahana was not used to int erpret this result as normal/abnormal . [facility]iscoVzbeimvAXBLIXNJRI4380-62-09 03:15:00 Test Item Value Reference Range Interpretation Comments RDW (test code = RDW) 16.8 11.5-14.5 [facility]iscoDtwsynwKAFCZPVPQU0452-74-97 03:15:00 Test Item Value Reference Range Interpretation Comments MCH (test code = MCH) 22.1 pg 27.0-31.0 [facility]iscoYfjnvwvXNSBPOOZVZ6962-91-44 03:15:00 Test Item Value Reference Range Interpretation Comments MCV (test code = MCV) 69.4 80.0-98.0 [facility]iscoKaezdgcOXUTCXQWQE5485-28-46 03:15:00 Test Item Value Reference Range Interpretation Comments Hct (test code = Hct) 33.8 36.0-48.0 [facility]iscoWiwjubpXEIIRBITWV4522-09-29 03:15:00 Test Item Value Reference Range Interpretation Comments RBC (test code = RBC) 4.87 4.20-5.40 [facility]iscoBpzsobdNTBCBENWVP9200-08-93 03:15:00 Test Item Value Reference Range Interpretation Comments MPV (test code = MPV) 8.5 7.4-10.4 [facility]iscoSfcsppqGPCAOMPRFV6231-84-95 03:15:00 Test Item Value Reference Range Interpretation Comments Platelet (test code = Platelet) 330 133-450 [facility]iscoWexnwitHKBBZCYLJA8790-85-53 03:15:00 Test Item Value Reference Range Interpretation Comments Hgb (test code = Hgb) 10.7 12.0-16.0 [facility]iscoCltgxlhGKUYADXXKG5255-74-55 03:15:00 Test Item Value Reference Range Interpretation Comments MCHC (test code = MCHC) 31.8 32.0-36.0 [facility]iscoTtreykxPPLHILEDFJ4826-70-23 03:15:00 Test Item Value Reference Range Interpretation Comments WBC (test code = WBC) 16.9 3.7-10.4 [facility]awWopytieXKPXTBBIJQZJ5799-61-89 03:15:00 Test Item Value Reference Range Interpretation Comments AGAP (test code = AGAP) 11.4 10.0-20.0 [id number] 03:15:00 Test Item Value Reference Range Interpretation Comments Creatinine Lvl (test code = Creatinine 0.91 0.50-1.40 Lvl) [id number] 03:15:00 Test Item Value Reference Range Interpretation Comments BUN (test code = BUN) 14 7-22 [id number] 03:15:00 Test Item Value Reference Range Interpretation Comments Potassium Lvl (test code = Potassium 3.4 3.5-5.1 Lvl) [id number] 03:15:00 Test Item Value Reference Range Interpretation Comments Sodium Lvl (test code = Sodium Lvl) 140 135-145 [id number] 03:15:00 Test Item Value Reference Range Interpretation Comments Chloride Lvl (test code = Chloride Lvl) 107 95-109 [id number] 03:15:00 Test Item Value Reference Range Interpretation Comments Calcium Lvl (test code = Calcium Lvl) 8.4 8.5-10.5 [facility] AND [id number] 01:52:00 Test Item Value Reference Range Interpretation Comments Micro? (test code = Not Indicated Micro?) *NA*(10/31/14 8:52 PM) [facility] AND [id number] 01:52:00 Test Item Value Reference Range Interpretation Comments UA Nitrite (test code Negative (10/31/14 8:52 = UA Nitrite) PM) [facility] AND [id number] 01:52:00 Test Item Value Reference Range Interpretation Comments UA Urobilinogen (test code = UA 0.2 0.1-1.0 Urobilinogen) [facility] AND [id number] 01:52:00 Test Item Value Reference Range Interpretation Comments UA Leuk Est (test Negative (10/31/14 8:52 code = UA Leuk Est) PM) [facility] AND [id number] 01:52:00 Test Item Value Reference Range Interpretation Comments UA Blood (test code = Negative (10/31/14 8:52 UA Blood) PM) [facility] AND [id number] 01:52:00 Test Item Value Reference Range Interpretation Comments UA Bili (test code = Negative *NA*(10/31/14 UA Bili) 8:52 PM) [facility] AND [id number] 01:52:00 Test Item Value Reference Range Interpretation Comments UA Color (test code = Yellow *NA*(10/31/14 UA Color) 8:52 PM) [facility] AND [id number] 01:52:00 Test Item Value Reference Range Interpretation Comments UA Turbidity (test code = Clear (10/31/14 8:52 UA Turbidity) PM) [facility] AND [id number] 01:52:00 Test Item Value Reference Range Interpretation Comments UA pH (test code = UA pH) 6.0 1 5.0-8.0 [facility] [id number] 01:52:00 Test Item Value Reference Range Interpretation Comments UA Protein (test code = UA Negative mg/dL Protein) [facility] AND [id number] 01:52:00 Test Item Value Reference Range Interpretation Comments UA Spec Grav (test code = UA Spec 1.025 1 Grav) [facility] AND [id number] 01:52:00 Test Item Value Reference Range Interpretation Comments UA Glucose (test code = UA Negative mg/dL Glucose) [facility] AND [id number] 01:52:00 Test Item Value Reference Range Interpretation Comments UA Ketones (test code = UA Negative mg/dL Ketones) [facility] [id number] 01:52:00 Test Item Value Reference Range Interpretation Comments U Preg (test code = U Negative (10/31/14 8:52 Preg) PM) [facility] [id number] 01:52:00 Test Item Value Reference Range Interpretation Comments Micro? (test code = Not Indicated Micro?) *NA*(10/31/14 8:52 PM) [facility] [id number] 01:52:00 Test Item Value Reference Range Interpretation Comments UA Nitrite (test code Negative (10/31/14 8:52 = UA Nitrite) PM) [facility] [id number] 01:52:00 Test Item Value Reference Range Interpretation Comments UA Urobilinogen (test code = UA 0.2 0.1-1.0 Urobilinogen) [facility] [id number] 01:52:00 Test Item Value Reference Range Interpretation Comments UA Leuk Est (test Negative (10/31/14 8:52 code = UA Leuk Est) PM) [facility] AND [id number] 01:52:00 Test Item Value Reference Range Interpretation Comments UA Blood (test code = Negative (10/31/14 8:52 UA Blood) PM) [facility] AND [id number] 01:52:00 Test Item Value Reference Range Interpretation Comments UA Bili (test code = Negative *NA*(10/31/14 UA Bili) 8:52 PM) [facility] AND [id number] 01:52:00 Test Item Value Reference Range Interpretation Comments UA Color (test code = Yellow *NA*(10/31/14 UA Color) 8:52 PM) [facility] AND [id number] 01:52:00 Test Item Value Reference Range Interpretation Comments UA Turbidity (test code = Clear (10/31/14 8:52 UA Turbidity) PM) [facility] [id number] 01:52:00 Test Item Value Reference Range Interpretation Comments UA pH (test code = UA pH) 6.0 1 5.0-8.0 [facility] [id number] 01:52:00 Test Item Value Reference Range Interpretation Comments UA Protein (test code = UA Negative mg/dL Protein) [facility] AND [id number] 01:52:00 Test Item Value Reference Range Interpretation Comments UA Spec Grav (test code = UA Spec 1.025 [address] Grav) [facility] [id number] 01:52:00 Test Item Value Reference Range Interpretation Comments UA Glucose (test code = UA Negative mg/dL Glucose) [facility] [id number] 01:52:00 Test Item Value Reference Range Interpretation Comments UA Ketones (test code = UA Negative mg/dL Ketones) [facility] [id number] 01:52:00 Test Item Value Reference Range Interpretation Comments U Preg (test code = U Negative (10/31/14 8:52 Preg) PM) [facility] AND [id number] 01:52:00 Test Item Value Reference Range Interpretation Comments Micro? (test code = Not Indicated Micro?) *NA*(10/31/14 8:52 PM) [facility] AND [id number] 01:52:00 Test Item Value Reference Range Interpretation Comments UA Nitrite (test code Negative (10/31/14 8:52 = UA Nitrite) PM) [facility] AND [id number] 01:52:00 Test Item Value Reference Range Interpretation Comments UA Urobilinogen (test code = UA 0.2 0.1-1.0 Urobilinogen) [facility] AND [id number] 01:52:00 Test Item Value Reference Range Interpretation Comments UA Leuk Est (test Negative (10/31/14 8:52 code = UA Leuk Est) PM) [facility] AND [id number] 01:52:00 Test Item Value Reference Range Interpretation Comments UA Blood (test code = Negative (10/31/14 8:52 UA Blood) PM) [facility] AND [id number] 01:52:00 Test Item Value Reference Range Interpretation Comments UA Bili (test code = Negative *NA*(10/31/14 UA Bili) 8:52 PM) [facility] [id number] 01:52:00 Test Item Value Reference Range Interpretation Comments UA Color (test code = Yellow *NA*(10/31/14 UA Color) 8:52 PM) [facility] AND [id number] 01:52:00 Test Item Value Reference Range Interpretation Comments UA Turbidity (test code = Clear (10/31/14 8:52 UA Turbidity) PM) [facility] AND [id number] 01:52:00 Test Item Value Reference Range Interpretation Comments UA pH (test code = UA pH) 6.0 1 5.0-8.0 [facility] AND [id number] 01:52:00 Test Item Value Reference Range Interpretation Comments UA Protein (test code = UA Negative mg/dL Protein) [facility] AND [id number] 01:52:00 Test Item Value Reference Range Interpretation Comments UA Spec Grav (test code = UA Spec 1.025 1 Grav) [facility] AND [id number] 01:52:00 Test Item Value Reference Range Interpretation Comments UA Glucose (test code = UA Negative mg/dL Glucose) [facility] AND [id number] 01:52:00 Test Item Value Reference Range Interpretation Comments UA Ketones (test code = UA Negative mg/dL Ketones) [facility] [id number] 01:52:00 Test Item Value Reference Range Interpretation Comments U Preg (test code = U Negative (10/31/14 8:52 Preg) PM) [facility]
[2022-08-22 16:15] LABS: Absolute Lymphocytes (CBC) 2.5 K/uL (0.7-4.9); Lymphocytes % 22.5 % (15.3-44.8); MPV 7.9 fL (7.6-11.3); RBC Red Blood Cell Count 5.07 M/uL (3.86-4.86)
[2022-08-22 16:23] LABS: SARS-CoV-2 Antigen Rapid Res Negative (Negative)
[2022-08-22 16:35] LABS: ALT/SGPT 20 U/L (13-56); AST/SGOT 22 U/L (15-37); Albumin 4.3 g/dL (3.4-5.0); Alkaline Phosphatase 59 U/L (45-117); BUN Blood Urea Nitrogen 14 mg/dL (7-18); Bicarbonate 28 mEq/L (21-32); Bilirubin Total 0.4 mg/dL (0.2-1.0); Glomerular Filtration Rate 97 ml/min (=/>90); Glucose Level 98 mg/dL (74-106); Potassium 3.6 mEq/L (3.5-5.1); Sodium Level 137 mEq/L (136-145)
[2022-08-22 16:36] LABS: Bilirubin Direct < 0.1 mg/dL (0-0.2)
[2022-08-22 17:02] LABS: Urine Blood Negative (Negative); Urine Glucose Negative (Negative); Urine Protein Trace (Negative); Urine Specific Gravity 1.025 (1.005-1.030); Urine pH 6.5 (5.0-7.0)
[2022-08-22 17:18] LABS: Barbiturates NEGATIVE (NEGATIVE); Benzodiazepines NEGATIVE (NEGATIVE); Cocaine NEGATIVE (NEGATIVE); METHAMPHETAM NEGATIVE (NEGATIVE); Methadone NEGATIVE (NEGATIVE); Opiates NEGATIVE (NEGATIVE); Phencyclidine NEGATIVE (NEGATIVE); THC Cannibis NEGATIVE (NEGATIVE)
--- NOTE | 2022-08-22 17:46 | EDPHYS ---
Physician Documentation [facility] Name: Marlene Prado Age: 41 yrs Sex: Female : 1980 Arrival Date: 08/22/2022 Time: 15:38 Bed 16 Private MD: ED Physician Scott Martínez HPI: 08/22 15:54 This 41 yrs old Female presents to ER via Ambulatory with complaints of Overdose. kb 15:46 Patient reports she is been depressed for a few months and started having suicidal kb ideations 1 week ago. States she does not know what is causing the depression or suicidal ideations. Pt was prescribed buspirone and sertraline on Wednesday by PCP. Patient took Aleve 220 mg tablets x5 2 hours prior to arrival. States she took the medication to relax herself so that she could hang herself. Patient called her mother to say goodbye and then did not answer her phone or text so her mother came to the house. Patient was on the stairs to hang herself and mother showed up.. 15:54 The patient presents to the emergency department after a known overdose, that was kb intentional. Context: Method: the patient has a confirmed or suspected ingestion, Aleve, Time: 2 hour(s) ago, Extent: the strength of the pills/capsules is 220 mg(s), the patient had a total ingestion of approximately 1100 mg(s), the OD/poisoning occurred at and was witnessed no one, Psychiatric history: the patient has a known psychiatric disorder, depression, Previous OD/poisoning history: none. Associated signs and symptoms: Pertinent positives: depression. Severity of symptoms: At their worst the symptoms were moderate in the emergency department the symptoms are unchanged. The patient has not experienced similar symptoms in the past. The patient has been recently seen by a physician:. Historical: - Allergies: 15:47 Codeine; ll1 - PMHx: 15:47 Depressive disorder; ll1 - PSHx: 15:47 section; Colectomy; illeostomy and reversal; ll1 - Immunization history:: Adult Immunizations up to date. - Social history:: Smoking status: Patient denies any tobacco usage or history of. Patient uses alcohol, patient/guardian reports recent binge of alcohol consumption. ROS: 15:50 Constitutional: Negative for fever, chills, and weight loss. kb 15:50 Psych: Positive for depression, suicide gesture, suicidal ideation. 15:50 All other systems are negative. Exam: 15:50 Head/Face: Normocephalic, atraumatic. ENT: Moist Mucous membranes Cardiovascular: kb Regular rate and rhythm with a normal S1 and S2. No gallops, murmurs, or rubs. No pulse deficits. Respiratory: Respirations even and unlabored. No increased work of breathing. Talking in full sentences Abdomen/GI: Soft, non-tender. No distention Skin: Warm, dry with normal turgor. Normal color. MS/ Extremity: Pulses equal, no cyanosis. Neurovascular intact. Full, normal range of motion. Neuro: Awake and alert, GCS 15, oriented to person, place, time, and situation. Moves all extremities. Normal gait. 15:50 Constitutional: The patient appears alert, awake. 15:50 Psych: Behavior/mood is cooperative, suicidal, Affect is flat, Oriented to person, place, time, Patient having thoughts of suicide. Plan for suicide is hang herself 17:28 ECG was reviewed by the Attending Physician. Vital Signs: 15:49 BP 176 / 89; Pulse 60; Resp 17; Temp 98.1; Pulse Ox 100% ; ll1 MDM: 15:38 Patient medically screened. kb 15:51 Data reviewed: vital signs, nurses notes. kb 15:57 Differential diagnosis: Depression, suicidal ideation, suicidal gesture, overdose on kb Aleve. Historians other than the Patient: Spouse/Significant Other: . 17:43 Consideration of Admission/Observation Pt will be transferred to inpatient psych. Counseling: I had a detailed discussion with the patient and/or guardian regarding: the historical points, exam findings, and any diagnostic results supporting the discharge/admit diagnosis, lab results, the need to transfer to another facility. 08/22 15:46 Order name: EKG; Complete Time: 15:47 kb 08/22 15:46 Order name: EKG - Nurse/Tech; Complete Time: 16:08 kb 08/22 15:46 Order name: Labs collected and sent; Complete Time: 16:08 kb 08/22 15:46 Order name: IV Saline Lock; Complete Time: 16:21 kb 08/22 15:46 Order name: CBC with Diff; Complete Time: 16:23 kb 08/22 15:46 Order name: SARS RAPID; Complete Time: 16:25 kb 08/22 15:46 Order name: PT-INR; Complete Time: 16:27 kb 08/22 15:46 Order name: Ptt, Activated; Complete Time: 16:27 kb 08/22 15:46 Order name: Suicide Precautions; Complete Time: 16:32 kb 08/22 15:46 Order name: Urine Dipstick-Ancillary (obtain specimen); Complete Time: 16:32 kb 08/22 15:46 Order name: Urine Test (obtain specimen); Complete Time: 16:32 kb 08/22 15:46 Order name: Acetaminophen; Complete Time: 16:49 kb 08/22 15:46 Order name: Hepatic Function; Complete Time: 16:49 kb 08/22 15:46 Order name: Salicylate; Complete Time: 16:49 kb 08/22 15:46 Order name: Basic Metabolic Panel; Complete Time: 16:49 kb 08/22 15:46 Order name: ETOH Level; Complete Time: 16:49 kb 08/22 16:19 Order name: Misc. Order: Call poison control for recommendation; Complete Time: 16:55 kb 08/22 15:46 Order name: Suicide Screening ([place]); Complete Time: 16:55 kb 08/22 17:03 Order name: Diet Finger Food; Complete Time: 17:04 eh3 08/22 17:04 Order name: Urine --Ancillary (enter results) kj1 08/22 17:02 Order name: Urine Dipstick-Ancillary; Complete Time: 17:06 EDMS 08/22 15:46 Order name: Urine Drug Screen; Complete Time: 17:25 kb EC:28 Rate is 59 beats/min. Rhythm is regular. QRS [place] is Normal. AR interval is normal at kb 150 msec. QRS interval is normal at 90 msec. QT interval is normal at 445 msec. Administered Medications: No medications were administered Disposition Summary: 08/22/22 17:45 Transfer Ordered Accepting Physician: Dr boogie Transfer Location: Psych Facility kb Reason: Higher level of care kb Condition: Stable kb Problem: new kb Symptoms: are unchanged kb Diagnosis - Suicidal ideations kb - Overdose on aleve kb Forms: - Medication Reconciliation Form kb - SBAR form kb Signatures: Dispatcher [employer] EDMS Anjali Felton, JENNIFER-Ed RODRIGUEZ-Jass Guerra RN RN ll1 Silvia Pablo RN RN eh3 Corrections: (The following items were deleted from the chart) 15:57 15:46 Prescribed buspirone and sertraline on Wednesday. Took Aleve 220 mg tablets x5 2 kb hours prior to arrival. kb
--- NOTE | 2022-08-22 17:46 | ER ---
Nurse's Notes [facility] Name: Marlene Prado Age: 41 yrs Sex: Female : 1980 Arrival Date: 08/22/2022 Time: 15:38 Bed 16 Private MD: Diagnosis: Suicidal ideations;Overdose on aleve Presentation: 08/22 15:48 Chief complaint: Patient states: SI. 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 SI for about 1 week, depression for a couple months. 15:49 Coronavirus screen: At this time, the client does not indicate any symptoms associated ll1 with coronavirus-19. Ebola Screen: Patient denies travel to an Ebola-affected area in the 21 days before illness onset. Initial Sepsis Screen: Does the patient meet any 2 criteria? No. Patient's initial sepsis screen is negative. Does the patient have a suspected source of infection? No. Patient's initial sepsis screen is negative. Risk Assessment: Do you want to hurt yourself or someone else? Patient reports desire/thoughts of hurting themselves or someone else. Provider notified. Onset of symptoms was June 24, 2022. 15:49 Method Of Arrival: Ambulatory ll1 15:49 Acuity: ELEANOR 2 ll1 Triage Assessment: 15:50 General: Appears uncomfortable, Behavior is calm, cooperative, appropriate for age. ll1 General: Reports SI. Pain: Denies pain. Historical: - Allergies: 15:47 Codeine; ll1 - PMHx: 15:47 Depressive disorder; ll1 - PSHx: 15:47 section; Colectomy; illeostomy and reversal; ll1 - Immunization history:: Adult Immunizations up to date. - Social history:: Smoking status: Patient denies any tobacco usage or history of. Patient uses alcohol, patient/guardian reports recent binge of alcohol consumption. Screenin:00 [facility] ED Fall Risk Assessment (Adult) Score/Fall Risk Level 0 - 2 = Low Risk. Abuse eh3 screen: Denies threats or abuse. Denies injuries from another. Nutritional screening: No deficits noted. Tuberculosis screening: No symptoms or risk factors identified. Assessment: 16:00 General: Appears in no apparent distress. uncomfortable, Behavior is cooperative, eh3 crying. Pain: Denies pain. Neuro: Level of Consciousness is awake, alert, obeys commands, Oriented to person, place, time, situation. Cardiovascular: Capillary refill < 3 seconds Patient's skin is warm and dry. Respiratory: Airway is patent Respiratory effort is even, unlabored, Respiratory pattern is regular, symmetrical. GI: Abdomen is round non-distended. : No signs and/or symptoms were reported regarding the genitourinary system. EENT: No signs and/or symptoms were reported regarding the EENT system. Derm: Skin is pink, warm \\T\\ dry. Musculoskeletal: No signs and/or symptoms reported regarding the musculoskeletal system. 16:45 Reassessment: Poison Control case # [id number]. eh3 Overdose: 16:23 Deputy Suicide Severity Screening: "In the past month, have you wished you were eh3 or wished you could go to sleep and not wake up?" Patient responds "yes." Based off client's responses, additional C-SSRS screening questions required. "In the past month, have you actually had any thoughts of killing yourself?" Patient responds "yes." Based off client's responses, additional C-SSRS screening questions required. "In your lifetime, have you ever done anything, started to do anything, or prepared to do anything to end your life?" Patient responds "yes." Patient reports suicidal intent within 3 past months. Patient took 5 Aleve Back and Muscle pain pills. Each tablet contains 220mg Naproxen. Overdose occurred 2-3 hours ago. Vital Signs: 15:49 BP 176 / 89; Pulse 60; Resp 17; Temp 98.1; Pulse Ox 100% ; ll1 ED Course: 15:38 Patient arrived in ED. am2 15:38 Anjali Felton F[facility]-C is [facility]. kb 15:38 Scott Martínez MD is Attending Physician. kb 15:47 Silvia Pablo, [place] is Primary Nurse. eh3 15:47 Arm band placed on Patient placed in an exam room, on a stretcher. ll1 15:50 Triage completed. ll1 16:00 Patient has correct armband on for positive identification. Bed in low position. Side eh3 rails up X 1. Adult w/ patient. Valuables inventory done. Given to family. See valuables checklist. Suicide precautions in place. Sitter at bedside. Door closed. Noise minimized. Curtain open, sliding door is closed for noise reduction Verbal reassurance given. 16:08 SARS RAPID Sent. kc6 16:08 Acetaminophen Sent. kc6 16:08 Basic Metabolic Panel Sent. kc6 16:08 CBC with Diff Sent. kc6 16:08 ETOH Level Sent. kc6 16:08 Hepatic Function Sent. kc6 16:08 PT-INR Sent. kc6 16:08 Ptt, Activated Sent. kc6 16:08 Salicylate Sent. kc6 16:21 Inserted saline lock: 22 gauge in right upper arm, using aseptic technique. rs5 Administered Medications: No medications were administered Outcome: 17:45 ER care complete, transfer ordered by . kb Signatures: Anjali Felton, INVENTORY CONTROL SUPERVISOR-C INVENTORY CONTROL SUPERVISOR-CkSangeetha Martínez Lynsay, RN RN ll1 Silvia Pablo RN RN 3 Rama Blackwood, [place] RN kc6 Helder Shah rs5
[2022-08-22 18:23] LABS: Urine Specific Gravity/Preg 1.025 (1.005-1.030)
[2022-08-22 20:10] VITALS: BP 157/79; O2SAT 99
[2022-08-22 20:42] VITALS: TEMP 98.1
--- NOTE | 2022-08-24 17:38 | EKG ---
Test Date: 2022-08-22 Test Time: 16:04:37 Custom Decorating Consultant: LAURY MEASUREMENT RESULTS: Intervals: Rate: 59 NE: 150 QRSD: 90 QT: 450 QTc: 445 [place]: P: 67 NE: 150 QRS: 74 T: 61 INTERPRETIVE STATEMENTS: Sinus bradycardia Otherwise normal ECG No previous ECG available for comparison Electronically Signed On 08-24-22 17:36:04 CDT by Renato Hutchinson
== END 2022-08-22 19:55 ==
LOC: ER 15:32
DX: R45.851 Suicidal ideations (principal); T39.311A Poisoning by propionic acid derivatives, accidental (unintentional), initial encounter; Z20.822 Contact with and (suspected) exposure to COVID-19
CPT/HCPCS: 93005; 85025; 80048; 36415; 81025; 85610; 80076; 85730; 81003; 80307; 99285; 87811; G0480 ×3